=== PATIENT | male | born 1990 | race Caucasian/White ===

== ENCOUNTER 2023-04-01 16:29 | Outpatient (OUT) | payer BC, SELFPAY ==
[2023-04-01 16:56] LABS: Basophils Percent Auto 0.2 % (0.2-2.0); Eosinophils Absolute Auto 0.1 10^3/uL (0.0-0.7); Eosinophils Percent Auto 1.6 % (0.9-7.0); Hematocrit 42.7 % (42.0-54.0); Hemoglobin 15.7 g/dL (14.0-18.0); Immature Granulocytes Abs Auto 0.01 10^3/uL (0.00-0.03); Immature Granulocytes Pct Auto 0.2 % (0.0-0.5); Lymphocytes Absolute Auto 2.5 10^3/uL (1.2-3.8); Lymphocytes Percent Auto 40.3 % (20.5-60.0); Mean Corpuscular HGB Conc 36.8 g/dL (29.9-35.2); Mean Corpuscular Hemoglobin 32.6 pg (25.9-34.0); Mean Corpuscular Volume 88.8 fL (80.0-94.0); Mean Platelet Volume 9.8 fL (9.5-13.5); Monocytes Absolute Auto 0.5 10^3/uL (0.3-0.8); Monocytes Percent Auto 8.6 % (1.7-12.0); Neutrophils Absolute Auto 3.1 10^3/uL (1.4-6.5); Neutrophils Percent Auto 49.1 % (43.0-75.0); Platelet Count 298 10^3/uL (150-450); Red Blood Count 4.81 10^6/uL (4.70-6.10); Red Cell Distribution Width 12.2 % (11.0-15.0); White Blood Count 6.3 10^3/uL (4.0-11.0)
[2023-04-01 17:00] LABS: Ammonia 31 umol/L (11-32)
[2023-04-01 17:03] LABS: Estimated Average Glucose 94 mg/dL; Glycohemoglobin A1C 4.9 % (4.5-6.2)
[2023-04-01 17:23] LABS: Bilirubin Urine NEGATIVE (NEGATIVE); Blood Urine NEGATIVE (NEGATIVE); Clarity Urine CLEAR (CLEAR); Color Urine YELLOW (YELLOW); Glucose Urine UA NEGATIVE (NEGATIVE); Ketones Urine NEGATIVE (NEGATIVE); Leukocyte Esterase Urine NEGATIVE (NEGATIVE); Nitrite Urine NEGATIVE (NEGATIVE); Protein Urine NEGATIVE (NEG/TRACE); Urobilinogen Urine 0.2 EU/dL (0.2-1.0)
[2023-04-01 17:32] LABS: Free T4 1.13 ng/dL (0.76-1.46)
[2023-04-01 17:34] LABS: Bacteria Urine NONE SEEN #/HPF (NONE SEEN); Cast Seen? NONE SEEN #/LPF (NONE SEEN); Crystals Seen? None Seen #/HPF (None Seen); Mucus Urine TRACE (NONE SEEN); RBC Urine NONE SEEN #/HPF (0-2); Squamous Epithelial Cell Urine NONE SEEN #/LPF (NONE/RARE); Urine Culture Indicated NO; WBC Urine NONE SEEN #/HPF (NONE SEEN)
[2023-04-01 17:40] LABS: Alanine Aminotransferase 30 U/L (16-63); Albumin Globulin Ratio 1.6; Albumin Level 4.5 g/dL (3.4-5.0); Alkaline Phosphatase 63 U/L (46-116); Aspartate Amino Transferase 15 U/L (15-37); BUN Creatinine Ratio 18.2; Bilirubin Total 0.9 mg/dL (0.2-1.0); Calcium 8.8 mg/dL (8.5-10.1); Carbon Dioxide 24.6 mmol/L (21.0-32.0); Chloride 104 mmol/L (98-107); Estimated GFR (African America >60 (>=60); Estimated GFR (Non-African Ame >60 (>=60); Globulin 2.8 g/dL; Glucose 89 mg/dL (74-106); Potassium 3.6 mmol/L (3.5-5.1); Sodium 138 mmol/L (136-145); Thyroid Stimulating Hormone 2.217 uIU/mL (0.358-3.740); Total Protein 7.3 g/dL (6.4-8.2)
[2023-04-04 13:07] LABS: Insulin 4.5 uIU/mL (2.6-24.9)
== END 2023-04-01 16:30 | disposition home or self-care (01) ==
PROVIDERS: PCP Family Medicine; Visit Provider Family Medicine
DX: Z00.00 Encounter for general adult medical examination without abnormal findings (principal); R42 Dizziness and giddiness; H53.489 Generalized contraction of visual field, unspecified eye; R00.2 Palpitations
CPT/HCPCS: 36415; 80053; 81001; 82140; 83036; 83525; 84439; 84443; 84481; 85025; 87086

== ENCOUNTER 2023-04-04 12:19 | Outpatient (OUT) | payer BC, SELFPAY ==
--- NOTE | 2023-04-04 12:40 | CA_ITS ---
[facility] Test Date: 2023-04-25 Pat Name: JUANCARLOS JAMES Department: Room: - Gender: Male [employer]: : 1990 Requested By: AMANDA CANNON Order Number: [id number] Reading MD: ÁNGEL ROCHE Interpretive Statements Predominant rhythm is sinus with average rate of 85 bpm Tachycardia - max rate of 162 bpm - longest episode of 1hr 31min 54sec with rate of 129-159 bpm Bradycardia - min rate of 41 bpm - longest episdoe of 1hr with rate of 50-58 bpm Ventricular ectopy - 896 totol (<1%) - 890 PVC - 6 couplets Patient triggered events: 23 - associated with symptoms of chest pain, palpitations, lightheadedness - associated with rates of 123, 100, 108, 110, 104, 110, 104, 112, 145 and the remainder NSR Impression: Predominant rhythm is sinus with average rate of 85 bpm Fastest rate of 162 bpm and slowest rate of 41 bpm 890 PVC, 6 couplets No pauses or blocks Electronically Signed On 04-28-2023 7:23:01 EDT by ÁNGEL ROCHE
== END 2023-04-04 12:20 | disposition home or self-care (01) ==
LOC: CRPH3 12:20
PROVIDERS: PCP Family Medicine; Visit Provider Family Medicine
DX: R00.2 Palpitations (principal)
CPT/HCPCS: 93246

== ENCOUNTER 2023-04-28 22:50 | Emergency (ER) | payer OTHER, BC, SELFPAY ==
[2023-04-28 23:11] VITALS: BP 139/77; PULSE 94; RESP 16; TEMP 37.5; O2SAT 97; BMI 29.5
--- NOTE | 2023-04-28 23:33 | ED.WOUNDLAC1 ---
HPI - Wound/Laceration General Chief Complaint: Wound/Laceration Stated Complaint: UPPER INJURY Time Seen by Provider: 04/28/23 23:19 Source: patient Mode of arrival: walk-in Limitations: no limitations History of Present Illness HPI narrative: patient states he loss his balance at work and fell lacerating his wrist. States he instill a powder in the wound to help stop the bleeding and now presents to the ER. no numbness or weakness. Denies other injury. Not sure when he had his last tetanus shot Related Data Home Medications Medication Instructions Recorded Confirmed atomoxetine 60 mg capsule 60 mg PO QDAY 04/28/23 04/28/23 pantoprazole 40 mg tablet,delayed 40 mg PO Q12H 04/28/23 04/28/23 release Allergies Allergy/AdvReac Type Severity Reaction Status Date / Time cefadroxil [From Duricef] Allergy Unknown Verified 04/28/23 23:36 Review of Systems ROS Status of ROS 10 or more systems reviewed and unremarkable except as noted in history and below PFS PFS Social History Smoking status: Never smoker Exam Constitutional Vital Signs, click to edit/add: Last Vital Signs Temp 99.5 F 04/28/23 23:11 Pulse 94 H 04/28/23 23:11 Resp 16 04/28/23 23:11 BP 139/77 04/28/23 23:11 Pulse Ox 97 04/28/23 23:11 O2 Del Method Room Air 04/28/23 23:11 Common normals: no apparent distress, average body habitus, oriented x3, no limitations and healthy appearing Eye Common normals: EOMs intact bilaterally and conjunctivae normal Respiratory Common normals: normal respiratory effort, no retractions and no use of accessory muscles Extremity Other: triangular shape 2cm lac volar right wrist. black material that is adherent to the wound that is partially open. Minimal bleeding. No other FB. No swelling or erythema Neuro Common normals: oriented x3, moves all extremities, no focal motor deficits and no sensory deficits noted Psych Appearance: grossly normal Course Vital Signs Vital signs: Vital Signs Temperature 99.5 F 04/28/23 23:11 Pulse Rate 94 H 04/28/23 23:11 Respiratory Rate 16 04/28/23 23:11 Blood Pressure 139/77 04/28/23 23:11 Pulse Oximetry 97 04/28/23 23:11 Oxygen Delivery Method Room Air 04/28/23 23:11 Temperature 99.5 F 04/28/23 23:11 Pulse Rate 94 H 04/28/23 23:11 Respiratory Rate 16 04/28/23 23:11 Blood Pressure 139/77 04/28/23 23:11 Pulse Oximetry 97 04/28/23 23:11 Oxygen Delivery Method Room Air 04/28/23 23:11 MDM - Wound/Laceration MDM Narrative Medical decision making narrative: patient presents with acute lac of his right wrist that happen at work. He instill an unknown powder in the wound to help stop the bleeding and it work but now this powder substance is adherent to the wound. wound measure about 2cm. Patient informed I'm not able to close the wound with this material in the wound and will need to let it heal by secondary intention. Nursing to apply bacitracin and dress the wound. Patient given dose of Augmentin and will need to follow up with [facility] to monitor wound healing. tetanus shot provided Discharge Plan Discharge Chief Complaint: Wound/Laceration Clinical Impression: Laceration Patient Disposition: Home, Self-Care Prescriptions / Home Meds: No Action atomoxetine 60 mg capsule 60 mg PO QDAY pantoprazole 40 mg tablet,delayed release (DR/EC) 40 mg PO Q12H Instructions: Laceration (ED) Additional Instructions: follow up with [facility] tomorrow for recheck Stand Alone Forms: Portal Instructions Referrals: Martínez Kline MD [Primary Care Provider] - 1 week
[2023-04-29] MEDS: ADACEL DIPH,PERTUSS(ACELL),TET VAC/PF 0.5 ML ADULT SYRINGE IM (00:01)
== END 2023-04-29 00:37 | disposition home or self-care (01) ==
PROVIDERS: Emergency Provider Internal Medicine; PCP Family Medicine
DX: S61.511A Laceration without foreign body of right wrist, initial encounter (principal); Z23 Encounter for immunization; W01.10XA Fall on same level from slipping, tripping and stumbling with subsequent striking against unspecified object, initial encounter
CPT/HCPCS: 12001; 90471; 90715; 99284

== ENCOUNTER 2023-05-25 14:01 | Outpatient (OUT) | payer OTHER, BC, SELFPAY ==
--- NOTE | 2023-05-25 | XR_ITS ---
The [address] [address] Patient Name: JUANCARLOS JAMES MRN: [id number] date: 1990 Sex: M Assigned Patient Location: RAD Current Patient Location: [facility] Accession/Order Number: [id number] Exam Date: 05/25/2023 14:15 Report Date: 05/25/2023 14:33 At the request of: BEATRIZ MATOS Procedure: XR forearm RT 2V PROCEDURE: XR forearm RT 2V COMPARISON: None. HISTORY: Laceration FINDINGS: BONES:No fracture, acute abnormality, or significant arthropathy. SOFT TISSUES:Dorsal forearm soft tissue swelling. No radiopaque foreign body EFFUSION:None visible. OTHER: Negative. XR/XR forearm RT 2V IMPRESSION: Soft tissue swelling. No acute fracture Electronically authenticated by: CHESTER SMITH Date: 05/25/2023 14:33
== END 2023-05-25 14:02 | disposition home or self-care (01) ==
LOC: RAD 14:03
PROVIDERS: PCP Family Medicine; Visit Provider Nurse Practitioner Family
DX: S51.811A Laceration without foreign body of right forearm, initial encounter (principal); W19.XXXA Unspecified fall, initial encounter
CPT/HCPCS: 73090

== ENCOUNTER 2024-04-02 16:31 | Outpatient (OUT) | payer BC, SELFPAY ==
[2024-04-05 21:07] LABS: QuantiFERON-TB Gold Plus Negative (Negative)
== END 2024-04-02 16:32 | disposition home or self-care (01) ==
LOC: LAB 16:33
PROVIDERS: PCP Family Medicine; Visit Provider Nurse Practitioner
DX: L40.0 Psoriasis vulgaris (principal)
CPT/HCPCS: 36415; 86480

== ENCOUNTER 2024-04-27 10:08 | Emergency (ER) | payer OTHER, SELFPAY ==
[2024-04-27 10:12] VITALS: BP 156/99; PULSE 106; TEMP 36.7; O2SAT 97; BMI 31.7
--- OUTSIDE RECORDS SUMMARY | 2024-04-27 10:24 | XMS_ITS | CCD ---
Author Organization [facility] Care Team Providers Care Certified Family Mediator Name Role Phone DAVIS ., DR PATEL Admitting Unavailable HOY ., DR PATEL Attending Unavailable HOY ., DR PATEL Primary Care Unavailable HOY ., DR PATEL Consulting Unavailable GRANT, DR JOSEPH Admitting Unavailable BURNS, DR JOSEPH Attending Unavailable HOY ., DR PATEL Primary Care Unavailable BURNS, DR JOSEPH Consulting Unavailable HOY ., DR PATEL Admitting Unavailable HOY ., DR PATEL Attending Unavailable HOY ., DR PATEL Primary Care Unavailable HOY ., DR PATEL Consulting Unavailable MD Amanda Cannon Primary Care Provider [phone] MD Tani Rivero Attending Provider Amanda Cannon Primary Care Unavailable Tani Rivero Attending Unavailable Tani Rivero Admitting Unavailable VERONICA HOLLIS Referring Unavailable VERONICA HOLLIS Attending Unavailable BEATRIZ MATOS Referring Unavailable VERONICA HOLLIS Attending Unavailable GAURANG SNATANA Attending Unavailable Allergies Allergy Classification Reported Allergen(s) Allergy Type Date of Onset Reaction(s) Facility (1 source) Cefadroxil Drug Allergy 06-11-2015 [facility] Repository Problems Active Problems Problem Classification Problem Date Documented Da te Episodic/Chronic Acute bronchitis (1 source) Acute bronchitis, unspecified; Translations: [ACUTE BRONCHITIS UNSPECIFIED] Onset: 09-15-2022 Episodic Contraceptive and procreative management (1 source) Encounter for fertility testing; Translations: [Encounter for fertility testing] Onset: 03-21-2024 Episodic Unclassified (3 sources) CONTACT W/AND (SUSP) EXPOS COVID-19; Translations: [CONTACT W/AND (SUSP) EXPOS COVID-19] Onset: 09-15-2022 Past or Other Problems Problem Classification Problem Date Documented Da te Episodic/Chronic Other aftercare (4 sources) Other care home (current) drug therapy; Translations: [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 Fi [facility] Comment on above: USED QUICKCHECK FOR LIQUIFICATION Semen Round Cell Concentration Moderate [facility] Semen WBC Concentration <1.0 M/mL <0.9 [facility] Sperm % Non-Motile 36 % [facility] Sperm Motility Total 64.0 % >40 [facility] Qualitative semen viscosityO rdered By: RHONDA Rivero on 03-21-2024 Viscosity Ql (Lelia) Abnormal Abnormal Normal [facility] Semen Analysis, Fertilityon 03-21-2024 Debris/Round Cells Moderate Normal [facility] Comment on above: Order Comment: Metho d of Collection:: Masturbation Has the patient had a vasectomy?: N Type of Specimen Container:: Sterile Container Abstinence Period:: 5 DAYS Kept at body temperature?: Y Any Collection or Transport Problems?: NONE Performed By: #### S EMCOMP #### [facility] [address] [place] [address] [place] Immotile Sperm 36 % Normal [facility] Comment on above: Order Comment: Metho d of Collection:: Masturbation Has the patient had a vasectomy?: N Type of Specimen Container:: Sterile Container Abstinence Period:: 5 DAYS Kept at body temperature?: Y Any Collection or Transport Problems?: NONE Performed By: #### S EMCOMP #### [facility] [address] [place] [id number] [place] Non-Progression Sperm Motili 7 % Normal [facility] Comment on above: Order Comment: Metho d of Collection:: Masturbation Has the patient had a vasectomy?: N Type of Specimen Container:: Sterile Container Abstinence Period:: 5 DAYS Kept at body temperature?: Y Any Collection or Transport Problems?: NONE Performed By: #### S EMCOMP #### [address] Normal Sperm Morphology 14.0 % Normal >=4.0 [facility] Comment on above: Order Comment: Metho d of Collection:: Masturbation Has the patient had a vasectomy?: N Type of Specimen Container:: Sterile Container Abstinence Period:: 5 DAYS Kept at body temperature?: Y Any Collection or Transport Problems?: NONE Performed By: #### S EMCOMP #### [address] Rapid Progression Sperm Motili 57 % Normal [facility] Comment on above: Order Comment: Metho d of Collection:: Masturbation Has the patient had a vasectomy?: N Type of Specimen Container:: Sterile Container Abstinence Period:: 5 DAYS Kept at body temperature?: Y Any Collection or Transport Problems?: NONE Performed By: #### S EMCOMP #### [address] Semen Comment . Normal [facility] Comment on above: Order Comment: Metho d of Collection:: Masturbation Has the patient had a vasectomy?: N Type of Specimen Container:: Sterile Container Abstinence Period:: 5 DAYS Kept at body temperature?: Y Any Collection or Transport Problems?: NONE Result Comment: USED QUICKCHECK FOR LIQUIFICATION PERFORMED BY: [place] [address] PATHOLOGIST RUG UNDERLAY MACHINE OPERATOR IGLESIA VARGAS M.D. Performed By: #### S EMCOMP #### [address] Semen Liquefaction Abnormal Critically abnormal <=60 min [facility] Comment on above: Order Comment: Metho d of Collection:: Masturbation Has the patient had a vasectomy?: N Type of Specimen Container:: Sterile Container Abstinence Period:: 5 DAYS Kept at body temperature?: Y Any Collection or Transport Problems?: NONE Performed By: #### S EMCOMP #### [address] Semen Viscosity Abnormal Critically abnormal Normal [facility] Comment on above: Order Comment: Metho d of Collection:: Masturbation Has the patient had a vasectomy?: N Type of Specimen Container:: Sterile Container Abstinence Period:: 5 DAYS Kept at body temperature?: Y Any Collection or Transport Problems?: NONE Performed By: #### S EMCOMP #### [address] Semen Volume 2.5 mL Normal >=1.5 [facility] Comment on above: Order Comment: Metho d of Collection:: Masturbation Has the patient had a vasectomy?: N Type of Specimen Container:: Sterile Container Abstinence Period:: 5 DAYS Kept at body temperature?: Y Any Collection or Transport Problems?: NONE Performed By: #### S EMCOMP #### [place] [address] [place] Sperm Concentration 135.4 Normal >=15 [facility] Comment on above: Order Comment: Metho d of Collection:: Masturbation Has the patient had a vasectomy?: N Type of Specimen Container:: Sterile Container Abstinence Period:: 5 DAYS Kept at body temperature?: Y Any Collection or Transport Problems?: NONE Performed By: #### S EMCOMP #### [address] Total Motility ([place]MEM[place]IP MANA[place]) 64.0 % Normal >=40 ([place]MEM[place]) [facility] Comment on above: Order Comment: Metho d of Collection:: Masturbation Has the patient had a vasectomy?: N Type of Specimen Container:: Sterile Container Abstinence Period:: 5 DAYS Kept at body temperature?: Y Any Collection or Transport Problems?: NONE Performed By: #### S EMCOMP #### [place] [address] [place] WBC Concent, Semen <1.0 Normal <1.0 [facility] Comment on above: Order Comment: Metho d of Collection:: Masturbation Has the patient had a vasectomy?: N Type of Specimen Container:: Sterile Container Abstinence Period:: 5 DAYS Kept at body temperature?: Y Any Collection or Transport Problems?: NONE Performed By: #### S EMCOMP #### [place] [address] [place] Semen Analysis, FertilityOrd ered By: RHONDA Rivero on 03-21-2024 Semen Appearance Normal Normal Normal [facility] Comment on above: Order Comment: Metho d of Collection:: Masturbation Has the patient had a vasectomy?: N Type of Specimen Container:: Sterile Container Abstinence Period:: 5 DAYS Kept at body temperature?: Y Any Collection or Transport Problems?: NONE Performed By: #### S EMCOMP #### [address] Semen pH 8.0 Normal >=7.2 [facility] Comment on above: Order Comment: Metho d of Collection:: Masturbation Has the patient had a vasectomy?: N Type of Specimen Container:: Sterile Container Abstinence Period:: 5 DAYS Kept at body temperature?: Y Any Collection or Transport Problems?: NONE Performed By: #### S EMCOMP #### [facility] [address] [place] [address] Semen liquefaction time merle urementOrdered By: RHONDA Rivero on 03-21-2024 Liquefaction (Lelia) [Time] Abnormal Abnormal <=60 min [facility] Semen volumeOrdered By: DC Rivero on 03-21-2024 Specimen volume (Lelia) 2.5 mL >1.5 [facility] Sperm countOrdered By: JACOBO Rivero on 03-21-2024 Spermatozoa (Lelia) [#/Vol] 135.4 M/mL >15 [facility] Sperm morphologyOrdered By: RHONDA Rivero on 03-21-2024 Spermatozoa Nom (Lelia) 14.0 % >4.0 [facility] INSULINon 12-04-2022 Insulin 3.0 uIU/mL Normal 2.6-24.9 [facility] Comment on above: Performed By: #### I NSULIN #### [facility] [address] [address] [address] Penny Arroyo CBC AUTO DIFFon 12-03-2022 BASO # 0.0 103/ul Normal 0.0-0.1 [facility] Comment on above: Performed By: #### C BC #### [facility] [address] [place] [address] Dr. Penny Arroyo Basophils/100 WBC (Bld) 0.3 % Normal 0.2-2.0 [facility] Comment on above: Performed By: #### C BC #### [facility] [address] [place] [address] Dr. Penny Arroyo EO # 0.2 103/ul Normal 0.0-0.7 [facility] Comment on above: Performed By: #### C BC #### [facility] [address] [place] [address] Dr. Penny Arroyo Eosinophils/100 WBC (Bld) 2.3 % Normal 0.9-7.0 [facility] Comment on above: Performed By: #### C BC #### [facility] [address] [place] [address] Dr. Penny Arroyo Erythrocyte distribution width (RBC) [Ratio] 12.4 % Normal 11.0-15.0 [facility] Comment on above: Performed By: #### C BC #### [facility] [address] [place] [address] Dr. Penny Arroyo Hematocrit (Bld) [Volume fraction] 43.5 % Normal 42.0-54.0 [facility] Comment on above: Performed By: #### C BC #### [facility] [address] [place] [address] Dr. Penny Arroyo Hemoglobin (Bld) [Mass/Vol] 15.7 g/dL Normal 14.0-18.0 [facility] Comment on above: Performed By: #### C BC #### [facility] [address] [place] [address] Dr. Penny Arroyo IG # 0.02 10e3/ul Normal 0.00-0.03 [facility] Comment on above: Performed By: #### C BC #### [facility] [address] [place] [address] Dr. Penny Arroyo IG % 0.3 % Normal 0.0-0.5 [facility] Comment on above: Performed By: #### C BC #### [facility] [address] [address] [address] Penny Arroyo LYMPH # 2.9 103/ul Normal 1.2-3.8 [facility] Comment on above: Performed By: #### C BC #### [facility] [address] [address] [address] Penny Arroyo Lymphocytes/100 WBC (Bld) 41.8 % Normal 20.5-60.0 [facility] Comment on above: Performed By: #### C BC #### [facility] [address] [address] [address] Penny Arroyo MANUAL DIFF REQ NO Normal [facility] Comment on above: Performed By: #### C BC #### [facility] [address] [place] [address] Dr. Penny Arroyo MCH (RBC) [Entitic mass] 32.2 pg Normal 25.9-34.0 [facility] Comment on above: Performed By: #### C BC #### [facility] [address] [place] [address] Dr. Penny Arroyo MCHC (RBC) [Mass/Vol] 36.1 g/dL Critically high 29.9-35.2 [facility] Comment on above: Performed By: #### C BC #### [facility] [address] [place] [address] Dr. Penny Arroyo MCV (RBC) [Entitic vol] 89.3 fL Normal 80.0-94.0 [facility] Comment on above: Performed By: #### C BC #### [facility] [address] [place] [address] Dr. Penny Arroyo MONO # 0.6 103/ul Normal 0.3-0.8 [facility] Comment on above: Performed By: #### C BC #### [facility] [address] [place] [address] Dr. Penny Arroyo Monocytes/100 WBC (Bld) 9.1 % Normal 1.7-12.0 [facility] Comment on above: Performed By: #### C BC #### [facility] [address] [address] [address] Penny Arroyo NEUT # 3.2 103/ul Normal 1.4-6.5 [facility] Comment on above: Performed By: #### C BC #### [facility] [address] [place] [address] Dr. Penny Arroyo Neutrophils/100 WBC (Bld) 46.2 % Normal 43.0-75.0 [facility] Comment on above: Performed By: #### C BC #### [facility] [address] [place] [address] Dr. Penny Arroyo Platelet mean volume (Bld) [Entitic vol] 9.7 fL Normal 9.5-13.5 [facility] Comment on above: Performed By: #### C BC #### [facility] [address] [place] [address] Dr. Penny Arroyo PLT 257 103/ul Normal 150-450 [facility] Comment on above: Performed By: #### C BC #### [facility] [address] [place] [address] Dr. Penny Arroyo RBC 4.87 106/ul Normal 4.70-6.10 [facility] Comment on above: Performed By: #### C BC #### [facility] [address] [place] [address] Dr. Penny Arroyo WBC 7.0 103/ul Normal 4.0-11.0 [facility] Comment on above: Performed By: #### C BC #### [facility] [address] [place] [address] Dr. Penny Arroyo FREE THYROXINE INDEX T7on FTI 3.17 Normal 1.30-4.50 [facility] Comment on above: Performed By: #### T 7, CMP, TSH, LIPID #### [facility] [address] [place] [address] Dr. Penny Arroyo T3U 36.0 % Normal 33.0-40.0 [facility] Comment on above: Performed By: #### T 7, CMP, TSH, LIPID #### [facility] [address] [address] [address] Penny Arroyo T4 [Mass/Vol] 8.80 ug/dL Normal 4.50-12.10 [facility] Comment on above: Performed By: #### T 7, CMP, TSH, LIPID #### [facility] [address] [address] [address] Penny Arroyo GLYCOHEMOGLOBIN A1Con 2022 ADA RECOMMENDATION SEE BELOW Normal [facility] Comment on above: Result Comment: ADA RECOMMENDED LIMIT 4.0 - 6.0 ADA THERAPEUTIC TARGET < 7.0 ACTION SUGGESTED > 7.0 Performed By: #### A 1C #### [facility] [address] [address] [address] Penny Arroyo Glucose [Mass/Vol] 88 mg/dL Normal [facility] Comment on above: Performed By: #### A 1C #### [facility] [address] [place] [address] Dr. Penny Arroyo HbA1c (Bld) [Mass fraction] 4.7 % Normal 4.5-6.2 [facility] Comment on above: Performed By: #### A 1C #### [facility] [address] [place] [address] Dr. Penny Arroyo LIPID PROFILEon 12-03-2022 CHOL-HDL RATIO NORM SEE BELOW Normal [facility] Comment on above: Result Comment: 3.3 - 4.4 LOW RISK 4.4 - 7.1 AVERAGE RISK 7.1 - 11.0 MODERATE RISK >11.0 HIGH RISK Performed By: #### T 7, CMP, TSH, LIPID #### [facility] [address] [place] [address] Dr. Penny Arroyo Cholesterol [Mass/Vol] 148 mg/dL Normal <=200 [facility] Comment on above: Performed By: #### T 7, CMP, TSH, LIPID #### [facility] [address] [place] [address] Dr. Penny Arroyo Cholesterol in HDL [Mass/Vol] 37 mg/dL Critically low 40-60 [facility] Comment on above: Performed By: #### T 7, CMP, TSH, LIPID #### [facility] [address] [address] [address] Penny Arroyo Cholesterol in LDL [Mass/Vol] 67.6 mg/dL Normal [facility] Comment on above: Performed By: #### T 7, CMP, TSH, LIPID #### [facility] [address] [address] [address] Penny Arroyo Cholesterol.total/Chol esterol in HDL [Mass ratio] 4.0 {ratio} Normal [facility] Comment on above: Performed By: #### T 7, CMP, TSH, LIPID #### [facility] [address] [address] [address] Penny Arroyo HDL NORMAL > or = 60 mg/dl - LO W CARDIOVASCULAR RISK <40 mg/dl - HIGH CARDIOVASCULAR RISK Normal [facility] Comment on above: Performed By: #### T 7, CMP, TSH, LIPID #### [facility] [address] [address] [address] Penny Arroyo LDL CALC NORMAL SEE BELOW Normal [facility] Comment on above: Result Comment: <100 mg/dl OPTIMAL 100 - 129 mg/dl NEAR OR ABOVE OPTIMAL 130 - 159 mg/dl BORDERLINE HIGH 160 - 189 mg/dl HIGH >190 mg/dl VERY HIGH Performed By: #### T 7, CMP, TSH, LIPID #### [facility] [address] [address] [address] Penny Arroyo Triglyceride [Mass/Vol] 217 mg/dL Critically high <=150 [facility] Comment on above: Performed By: #### T 7, CMP, TSH, LIPID #### [facility] [address] [address] [address] Penny Arroyo VLDL CALC 43.4 mg/dL Normal [facility] Comment on above: Performed By: #### T 7, CMP, TSH, LIPID #### [facility] [address] [address] [address] Penny Arroyo PROF 14(COMP METB)on 023 Albumin [Mass/Vol] 4.2 g/dL Normal 3.4-5.0 [facility] Comment on above: Performed By: #### T 7, CMP, TSH, LIPID #### [facility] [address] [address] [address] Penny Arroyo Albumin/Globulin [Mass ratio] 1.4 {ratio} Normal [facility] Comment on above: Performed By: #### T 7, CMP, TSH, LIPID #### [facility] [address] [address] [address] Penny Arroyo ALP [Catalytic activity/Vol] 65 U/L Normal 46-116 [facility] Comment on above: Performed By: #### T 7, CMP, TSH, LIPID #### [facility] [address] [address] [address] Penny Arroyo ALT [Catalytic activity/Vol] 28 U/L Normal 16-63 [facility] Comment on above: Performed By: #### T 7, CMP, TSH, LIPID #### [facility] [address] [address] [address] Penny Arroyo Anion gap [Moles/Vol] 14.2 mmol/L Normal [facility] Comment on above: Performed By: #### T 7, CMP, TSH, LIPID #### [facility] [address] [address] [address] Penny Arroyo AST [Catalytic activity/Vol] 20 U/L Normal 15-37 [facility] Comment on above: Performed By: #### T 7, CMP, TSH, LIPID #### [facility] [address] [address] [address] Penny Arroyo Bilirubin [Mass/Vol] 0.7 mg/dL Normal 0.2-1.0 [facility] Comment on above: Performed By: #### T 7, CMP, TSH, LIPID #### [facility] [address] [address] [address] Penny Arroyo Calcium [Mass/Vol] 9.0 mg/dL Normal 8.5-10.1 [facility] Comment on above: Performed By: #### T 7, CMP, TSH, LIPID #### [facility] [address] [address] [address] Penny Arroyo Chloride [Moles/Vol] 103 mmol/L Normal 98-107 [facility] Comment on above: Performed By: #### T 7, CMP, TSH, LIPID #### [facility] [address] [place] [address] Dr. Penny Arroyo CO2 [Moles/Vol] 26.7 mmol/L Normal 21.0-32.0 [facility] Comment on above: Performed By: #### T 7, CMP, TSH, LIPID #### [facility] [address] [place] [address] Dr. Penny Arroyo Creatinine [Mass/Vol] 0.83 mg/dL Normal 0.70-1.30 [facility] Comment on above: Performed By: #### T 7, CMP, TSH, LIPID #### [facility] [address] [place] [address] Dr. Penny Arroyo EGFR-AF SAMMARINESE >60 Normal >=60 [facility] Comment on above: Performed By: #### T 7, CMP, TSH, LIPID #### [facility] [address] [place] [address] Dr. Penny Arroyo EGFR-NON AF SAMMARINESE >60 Normal >=60 [facility] Comment on above: Performed By: #### T 7, CMP, TSH, LIPID #### [facility] [address] [place] [address] Dr. Penny Arroyo Globulin (S) [Mass/Vol] 3.0 g/dL Normal [facility] Comment on above: Performed By: #### T 7, CMP, TSH, LIPID #### [facility] [address] [place] [address] Dr. Penny Arroyo Glucose [Mass/Vol] 89 mg/dL Normal 74-106 [facility] Comment on above: Performed By: #### T 7, CMP, TSH, LIPID #### [facility] [address] [place] [address] Dr. Penny Arroyo Potassium [Moles/Vol] 3.9 mmol/L Normal 3.5-5.1 [facility] Comment on above: Performed By: #### T 7, CMP, TSH, LIPID #### [facility] [address] [place], [place] [id number] Dr. Penny Arroyo Protein [Mass/Vol] 7.2 g/dL Normal 6.4-8.[address] [facility] Comment on above: Performed By: #### T 7, CMP, TSH, LIPID #### [facility] [address] [place] [address] Dr. Penny Arroyo Sodium [Moles/Vol] 140 mmol/L Normal 136-[address] [facility] Comment on above: Performed By: #### T 7, CMP, TSH, LIPID #### [facility] [address] [place] [address] Dr. Penny Arroyo Urea nitrogen [Mass/Vol] 15.0 mg/dL Normal 7.0-18.0 [facility] Comment on above: Performed By: #### T 7, CMP, TSH, LIPID #### [facility] [address] [place] [address] Dr. Penny Arroyo Urea nitrogen/Creatinine [Mass ratio] 18.1 mg/mg Normal [facility] Comment on above: Performed By: #### T 7, CMP, TSH, LIPID #### [facility] [address] [place] [address] Dr. Penny Arroyo TSHon 12-03-2022 TSH 2.567 uIU/mL Normal 0.358-3.740 [facility] Comment on above: Performed By: #### T 7, CMP, TSH, LIPID #### [facility] [address] [place] [address] Dr. Penny Arroyo Covid-19 PCR (CVDTB)on 08-20 SARS-CoV-2 (COVID-19) RNA HALI+probe Ql (Unsp spec) Not detected Normal NOT DETECTED [facility] Comment on above: Result Comment: This test is not yet approved or cleared by the [place] FDA. When there are no FDA-approved or cleared tests available, and other criteria are met, FDA can make tests available under an emergency access mechanism called an Emergency Use Authorization (EUA). The EUA for this test is supported by the [place] of Health and Human Service's (HHS's) declaration that circumstances exist to justify the emergency use of in vitro diagnostics for the detection and/or diagnosis of the virus that causes COVID-19. This EUA will remain in effect (meaning this test can be used) for the duration of the COVID-19 declaration justifying emergency of IVDs, unless it is terminated or revoked by FDA (after which the test may no longer be used). When diagnostic testing is negative, the possibility of a false negative should be considered in the context of a patient's recent exposures and the presence of clinical signs and symptoms consistent with SARS-CoV-2. Performed By: #### C VDTBH #### [facility] [address] [place] [address] Dr. Penny Arroyo INFLUENZA A AND B AGon 09-08 INFLUENZA A AG Negative Normal NEGATIVE SEE COMMENT [facility] Comment on above: Performed By: #### I NFLUAB #### [facility] [address] [place], [place] [address] Dr. Penny Arroyo INFLUENZA B AG Negative Normal NEGATIVE SEE COMMENT [facility] Comment on above: Performed By: #### I NFLUAB #### [facility] [address] [place] [address] Dr. Penny Arroyo INTERNAL CONTROLS Within Normal Limits Normal Wi thin Normal Limits [facility] Comment on above: Performed By: #### I NFLUAB #### [facility] [address] [place] [address] Dr. Penny Arroyo QUANTIFERON TB GOLD PLUSon 0 02-19-2022 QuantiFERON Criteria Comment Normal [facility] Comment on above: Result Comment: The QuantiFERON-TB Gold Plus result is determined by subtracting the Nil value from either TB antigen (Ag) tube. The mitogen tube serves as a control for the test. Performed By: #### Q NTTB #### [facility] [address] [place] [address] Dr. Penny Arroyo QuantiFERON Incubation Incubation performed. [facility] Comment on above: Performed By: #### Q NTTB #### [facility] [address] [place] [address] Dr. Penny Arroyo QuantiFERON Mitogen Value >10.00 Normal [facility] Comment on above: Performed By: #### Q NTTB #### [facility] [address] [address] [address] Penny Arroyo QuantiFERON Nil Value 0.06 IU/mL Normal [facility] Comment on above: Performed By: #### Q NTTB #### [facility] [address] [address] [address] Penny Arroyo QuantiFERON TB1 Ag Value 0.05 IU/mL Normal [facility] Comment on above: Performed By: #### Q NTTB #### [facility] [address] [address] [address] Penny Arroyo QuantiFERON TB2 Ag Value 0.05 IU/mL Normal [facility] Comment on above: Performed By: #### Q NTTB #### [facility] [address] [address] [address] Penny Arroyo QuantiFERON-TB Gold Plus Negative Normal Negative [facility] Comment on above: Result Comment: Chem iluminescence immunoassay methodology Performed By: #### Q NTTB #### [facility] [address] [address] [address] Penny Arroyo Coding Summary.on 05-10-2019 Coding Summary. CODING DATE: 05/10/2019 [facility] STATUS: Home (Routine DC) PAYOR: [facility] DESCRIPTION 5521 Level 1 Imaging without Contrast ADMIT DX: REASON FOR VISIT DX: R07.81 Pleurodynia FINAL DX: PRINCIPAL: R07.81 Pleurodynia SECONDARY: PYMT PROC APC STAT DESCRIPTION DOCTOR NAME DATE NOTE: The code number assigned matches the documented diagnosis and / or procedure in the patient's chart. However, the narrative phrase printed from the coding software may appear abbreviated, or result in slightly different terminology. Coded By: Elke Roman CphT Date Saved: 05/10/2019 11:17 am Normal [facility] XR Ribs 2 Views Lefton 05-07 XR Ribs 2 Views Left Exam Date/Time: 05/07/2019 12:24 EDT Reason for Exam: Injury;Injury Report IMPRESSION: MINIMALLY DISPLACED FRACTURE OF POSTEROLATERAL LEFT RIB 10. EXAMINATION: X-ray ribs left 2 view HISTORY: Left rib pain after injury. TECHNIQUE: Frontal and oblique views of the left ribs FINDINGS: Minimally displaced fracture of posterolateral left rib 10. Remaining ribs appear intact. Visualized lungs are clear. No pneumothorax. FINAL REPORT Dictated: 05/07/2019 3:15 pm Juancarlos Baker DO Signed (Electronic Signature): 05/07/2019 3:15 pm Signed by: Juancarlos Baker DO Transcribed by: WILLIAM Technologist: HARISH Brunner [facility] Encounters Encounter Date Encounter Type Care Provider Facility Start: 04-02-2024 End: 04-02-2024 ambulatory GAURANG SANTANA Not Available Start: 03-21-2024 End: 03-21-2024 Patient encounter procedure MD Amanda Cannon Work Phone: [facility] [place] Work Phone: Start: 03-21-2024 End: 03-21-2024 ambulatory MD Amanda Cannon Work Phone: [facility] Work Phone: Start: 02-09-2024 End: 02-09-2024 ambulatory VERONICA HOLLIS Not Available Start: 12-29-2023 End: 12-29-2023 ambulatory VERONICA HOLLIS Not Available Start: 12-11-2022 Encounter for genera l adult medical examination without abnormal findings DR AMANDA CANNON . [facility] Start: 12-03-2022 End: 12-04-[address] AMANDA CANNON . Facility[facility] Start: 12-03-2022 End: 12-04-2022 Encounter for general adult medical examination without abnormal findings DR AMANDA CANNON . Facility:[facility] Start: 09-08-2022 End: 09-08-[address] AMANDA CANNON . Facility:[facility] Start: 02-16-2022 End: 02-17-[address] OPAL BURNS Facility:[facility] Payers Date Payer Category Payer Self-pay [id number] 2023 Unknown [id number] 1989 Unknown [id number] 2.16.84 [id number] 1989 Unknown [id number] 2.16.84 [id number] 1989 Unknown [id number] 2.16.84 [id number] 1989 Unknown [id number] 2.16.84 [id number] 1989 Unknown [id number] 2.16.84 [id number] 1989 Unknown [id number] 2.16.84 0.1.809969.3.579.2.9 1989 Unknown [id number] 2.16.84 0.1.380739.3.579.2.9 1989 Unknown [id number] 2.16.84 0.1.394371.3.579.2.1259 1989 Unknown [id number] 2.16.84 [id number] 1989 Unknown [id number] 2.16.84 0.1.056680.3.579.2.9 1989 Unknown [id number] 2.16.84 [id number] 1959 Unknown [id number] 1959 Unknown [id number] Unknown [id number] 2.16.8 [id number] Social History Date Type Detail [facility] Work Phone: Start: 1990 Sex Assigned At Male F [facility] Clinical Note 03-21-2024 Note Date & Type Note Facility 03-21-2024 Note [facility] Sperm Rapid Progressive March 21, 2024 7:30am 57 % Clinical Note 03-21-2024 Note Date & Type Note Facility 03-21-2024 Note [facility] Sperm Non-Progressive March 21, 2024 7:30am 7 % Evaluation note Note Date & Type Note Facility Evaluation note No assessment information availa [facility] Work Phone: Summary Purpose Family History No Family History Records FoundNo Family History Records FoundNo Family History Records FoundNo Family History Records Found Advance Directives No Advanced Directives Records Found Advance Directive Response Recorded Date/ Time Advance Directives No March 21 8:26am Chief Complaint and Reason for Visit Chief Complaint Z31.42 Additional Source Comments (unrecognized sect ion and content) No Status Records FoundNo Status Records FoundNo Status Records FoundNo Status Records Found INFORMATION SOURCE (unrecogn ized section and content) DATE CREATED AUTHOR 05/11/2019 [facility] DATE CREATED AUTHOR AUTHOR'S ORGANIZ ATION 12/12/2022 [facility] DATE CREATED AUTHOR AUTHOR'S ORGANIZ ATION 04/06/2024 [facility] DATE CREATED AUTHOR AUTHOR'S ORGANIZ ATION 04/06/2024 [facility] EPIC Care Teams (unrecognized sec tion and content) Team Status: Active Member Role Status Dates Amanda Cannon MD Primary Care Provider Active Team Status: Inactive Member Role Status Dates Amanda Cannon MD Primary Care Provider Active Start: March 21, 2024 End: March 21, 2024 Tani Rivero MD Attending Provider Active St art: March 21, 2024 End: March 21, 2024 Goals (unrecognized section and content) Goals may be documented in a n alternate section FOR RECORDS PERTAINING TO PATIENTS WHO ARE OR HAVE BEEN ENROLLED IN A CHEMICAL DEPENDENCY/SUBSTANCEABUSE PROGRAM, SOME INFORMATION MAY BE OMITTED. This clinical summary was aggregated from multiple sources. Caution should be exercised in using it in the provision of clinical care. This summary normalizes information from multiple sources, and as a consequence, information in this document may materially change the coding, format and clinical context of patient data. In addition, data may be omitted in some cases. CLINICAL DECISIONS SHOULD BE BASED ON THE PRIMARY CLINICAL RECORDS. [employer] provides no warranty or guarantee of the accuracy or completeness of information in this document.
--- NOTE | 2024-04-27 10:36 | XR_ITS ---
The [address] [address] Patient Name: JUANCARLOS JAMES MRN: [id number] date: 1990 Sex: M Assigned Patient Location: ER Current Patient Location: ER Accession/Order Number: [id number] Exam Date: 04/27/2024 10:45 Report Date: 04/27/2024 11:08 At the request of: PINO BERG Procedure: XR hand RT min 3V PROCEDURE: XR hand RT min 3V HISTORY: Attention middle finger, laceration, missing nail COMPARISON: None. FINDINGS: BONES:No fracture, acute abnormality, or significant arthropathy. SOFT TISSUES:Mild soft tissue swelling of third digit. Several tiny foreign bodies adjacent the fingernail of the fourth digit. EFFUSION:None visible. OTHER: Negative. XR/XR hand RT min 3V IMPRESSION: 1. Mild soft tissue swelling of the third digit. No bone involvement. Electronically authenticated by: RUTHY OROSCO Date: 04/27/2024 11:08
--- NOTE | 2024-04-27 10:52 | ED.WOUNDLAC1 ---
HPI - Wound/Laceration General Chief Complaint: Wound/Laceration Stated Complaint: LACERATION [facility] Time Seen by Provider: 04/27/24 10:29 Source: patient Mode of arrival: walk-in History of Present Illness HPI narrative: 33-year-old male presents for a wound to his right middle finger. This occurred at work just before coming into the emergency department. 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 His nail and some skin came off. He has no difficulty bending the tip of his finger and no other injury was sustained. Related Data Home Medications ?Medication ?Instructions ?Recorded ?Confirmed atomoxetine 60 mg capsule 60 mg PO QDAY 04/28/23 04/28/23 pantoprazole 40 mg tablet,delayed 40 mg PO Q12H 04/28/23 04/28/23 release Previous Rx's ?Medication ?Instructions ?Recorded acetaminophen 300 mg-codeine 30 mg 1 tab PO Q6H PRN pain 5 days #20 04/27/24 tablet tabs sulfamethoxazole 800 1 tab PO BID 10 days #20 tabs 04/27/24 mg-trimethoprim 160 mg tablet (Bactrim DS) Allergies Allergy/AdvReac Type Severity Reaction Status Date / Time cefadroxil [From Duricef] Allergy Unknown Verified 04/28/23 23:36 Review of Systems ROS Narrative A ten point review of systems is negative except as noted above. PFSH PFSH Social History Smoking status: Never smoker Exam Narrative Exam Narrative: Nurses note and vital signs reviewed and patient is not hypoxic. General: The patient appears well and in no apparent distress. Patient is resting comfortably on cart. Skin: Warm, dry, no pallor noted. There is no rash noted. Head: Normocephalic, atraumatic Eye: Normal conjunctiva, no drainage Ears, Nose, Mouth, and Throat: oral mucosa is moist. Nares patent. Cardiovascular: Regular Rate and Rhythm Respiratory: Patient is in no distress, no accessory muscle use, lungs are clear to auscultation, no wheezing, rales or rhonchi Back: non-tender GI: Soft and nontender Musculoskeletal: The right hand is examined. The right third fingernail is missing and there is an area of missing skin proximal to that that extends over the DIP. PIP and DIP have full range of motion. No other wound is found. Neurological: Awake and alert Psychiatric: Cooperative Constitutional Vital Signs, click to edit/add: Last Vital Signs Temp 98.0 F 04/27/24 10:12 Pulse 106 H 04/27/24 10:12 Resp 16 04/27/24 10:12 BP 156/99 H 04/27/24 10:12 Pulse Ox 97 04/27/24 10:12 O2 Del Method Room Air 04/27/24 10:12 Course Vital Signs Vital signs: Vital Signs Temperature 98.0 F 04/27/24 10:12 Pulse Rate 106 H 04/27/24 10:12 Respiratory Rate 16 04/27/24 10:12 Blood Pressure 156/99 H 04/27/24 10:12 Pulse Oximetry 97 04/27/24 10:12 Oxygen Delivery Method Room Air 04/27/24 10:12 Temperature 98.0 F 04/27/24 10:12 Pulse Rate 106 H 04/27/24 10:12 Respiratory Rate 16 04/27/24 10:12 Blood Pressure 156/99 H 04/27/24 10:12 Pulse Oximetry 97 04/27/24 10:12 Oxygen Delivery Method Room Air 04/27/24 10:12 MDM - Wound/Laceration MDM Narrative Medical decision making narrative: X-rays negative. Sutures are not indicated, there is skin avulsion. The wound was cleansed and dressed. Tetanus is already up-to-date, he had 1 a year ago. He is placed on Tylenol 3 and Bactrim. Appointment made for him to see orthopedics in 3 days, 11:30 AM on April 30. Treatment diagnosis and follow-up were discussed with the patient. He will return here in 2 days for wound check and dressing change. Differential Diagnosis Differential diagnosis: Likely laceration and avulsion of skin Discharge Plan Discharge Stand Alone Forms: Portal Instructions Chief Complaint: Wound/Laceration Clinical Impression: Avulsion of skin Patient Disposition: Home, Self-Care Prescriptions / Home Meds: New acetaminophen-codeine 300-30 mg tablet 1 tab PO Q6H PRN (Reason: pain) 5 Days Qty: 20 0RF sulfamethoxazole-trimethoprim [Bactrim DS] 800-160 mg tablet 1 tab PO BID 10 Days Qty: 20 0RF No Action atomoxetine 60 mg capsule 60 mg PO QDAY pantoprazole 40 mg tablet,delayed release (DR/EC) 40 mg PO Q12H Print Language: Latvian Instructions: Laceration Without Closure (ED) Additional Instructions: See Dr. Caballero at your appointment at 11:30 AM on April 30. Come to ER on April 29 for wound check and dressing change. Referrals: Martínez Kline MD [Primary Care Provider] - 1 week Arturo Caballero MD [Physician] - None
[2024-04-27] MEDS: ACETAMINOPHEN 300 MG/ 30 MG CODEINE TABLET 1 TAB PO (11:47)
== END 2024-04-27 11:59 | disposition home or self-care (01) ==
PROVIDERS: Emergency Provider Emergency Medicine; PCP Family Medicine
DX: S61.202A Unspecified open wound of right middle finger without damage to nail, initial encounter (principal); X58.XXXA Exposure to other specified factors, initial encounter
CPT/HCPCS: 73130; 99283

== ENCOUNTER 2024-04-29 08:59 | Emergency (ER) | payer BC, OTHER, SELFPAY ==
[2024-04-29 09:04] VITALS: BP 163/97; PULSE 71; TEMP 36.6; O2SAT 99; BMI 32.1
--- OUTSIDE RECORDS SUMMARY | 2024-04-29 09:05 | XMS_ITS | CCD ---
Author Organization [facility] Care Team Providers Care Power Distribution Engineer Name Role Phone DAVIS ., DR PATEL [...] Unavailable MD Amanda Cannon Primary Care Provider [phone] MD Tani Rivero Attending Provider [phone] Amanda Cannon Primary Care Unavailable Tani Rivero Attending Unavailable Tani Rivero Admitting Unavailable VERONICA HOLLIS Referring Unavailable VERONICA HOLLIS Attending Unavailable BEATRIZ MATOS Referring Unavailable VERONICA HOLLIS Attending Unavailable GAURANG SANTANA Attending Unavailable Allergies Allergy Classification Reported Allergen(s) Allergy Type Date of Onset Reaction(s) Facility (1 source) Cefadroxil Drug Allergy 06-11-2015 [facility] Repository Problems Active Problems Problem Classification Problem [...] te Episodic/Chronic Other aftercare (4 sources) Other photographer news (current) drug therapy; Translations: [OTH HALF-WAY CURRENT DRUG THERAPY] Onset: 02-16-2022 Episodic Unclassified (1 source) CONTACT W/AND (SUSP) EXPOS COVID-19; Translations: [CONTACT W/AND (SUSP) EXPOS COVID-19] Onset: 09-08-2022 Results Test Name Value Interpretation Reference Range Facility No Panel InformationOrdered By: RHONDA Rivero on 03-21-2024 Semen Analysis Comment . [facility] Comment on above: USED QUICKCHECK FOR LIQUIFICATION Semen Round Cell Concentration Moderate [facility] Semen WBC Concentration <1.0 M/mL <0.9 [facility] Sperm % Non-Motile 36 % [facility] Sperm Motility Total 64.0 % >40 [facility] Qualitative semen viscosityO rdered By: RHONDA Rivero on 03-21-2024 Viscosity Ql (Lelia) Abnormal Abnormal Normal [facility] Semen Analysis, Fertilityon 03-21-2024 Debris/Round Cells Moderate Normal [facility] Comment on above: Order Comment: Metho d of Collection:: Masturbation Has the patient had a vasectomy?: N Type of Specimen Container:: Sterile Container Abstinence Period:: 5 DAYS Kept at body temperature?: Y Any Collection or Transport Problems?: NONE Performed By: #### S EMCOMP #### [facility] [address] [place] [address] [place] Immotile Sperm 36 % Normal [facility] Comment on above: Order Comment: Metho d of Collection:: Masturbation Has the patient had a vasectomy?: N Type of Specimen Container:: Sterile Container Abstinence Period:: 5 DAYS Kept at body temperature?: Y Any Collection or Transport Problems?: NONE Performed By: #### S EMCOMP #### [facility] [address] [place] [id number] [place] Non-Progression Sperm Motili 7 % Normal [facility] Comment on above: Order Comment: Metho d of Collection:: Masturbation Has the patient had a vasectomy?: N Type of Specimen Container:: Sterile Container Abstinence Period:: 5 DAYS Kept at body temperature?: Y Any Collection or Transport Problems?: NONE Performed By: #### S EMCOMP #### [address] Normal Sperm Morphology 14.0 % Normal >=4.0 [facility] Comment on above: Order Comment: Metho d of Collection:: Masturbation Has the patient had a vasectomy?: N Type of Specimen Container:: Sterile Container Abstinence Period:: 5 DAYS Kept at body temperature?: Y Any Collection or Transport Problems?: NONE Performed By: #### S EMCOMP #### [address] Rapid Progression Sperm Motili 57 % Normal [facility] Comment on above: Order Comment: Metho d of Collection:: Masturbation Has the patient had a vasectomy?: N Type of Specimen Container:: Sterile Container Abstinence Period:: 5 DAYS Kept at body temperature?: Y Any Collection or Transport Problems?: NONE Performed By: #### S EMCOMP #### [address] Semen Comment . Normal [facility] Comment on above: Order Comment: Metho d of Collection:: Masturbation Has the patient had a vasectomy?: N Type of Specimen Container:: Sterile Container Abstinence Period:: 5 DAYS Kept at body temperature?: Y Any Collection or Transport Problems?: NONE Result Comment: USED QUICKCHECK FOR LIQUIFICATION PERFORMED BY: [place] [address] PATHOLOGIST SUBWAY OPERATOR IGLESIA VARGAS M.D. Performed By: #### S EMCOMP #### [address] Semen Liquefaction Abnormal Critically abnormal <=60 min [facility] Comment on above: Order Comment: Metho d of Collection:: Masturbation Has the patient had a vasectomy?: N Type of Specimen Container:: Sterile Container Abstinence Period:: 5 DAYS Kept at body temperature?: Y Any Collection or Transport Problems?: NONE Performed By: #### S EMCOMP #### [address] Semen Viscosity Abnormal Critically abnormal Normal [facility] Comment on above: Order Comment: Metho d of Collection:: Masturbation Has the patient had a vasectomy?: N Type of Specimen Container:: Sterile Container Abstinence Period:: 5 DAYS Kept at body temperature?: Y Any Collection or Transport Problems?: NONE Performed By: #### S EMCOMP #### [address] Semen Volume 2.5 mL Normal >=1.5 [facility] Comment on above: Order Comment: Metho d of Collection:: Masturbation Has the patient had a vasectomy?: N Type of Specimen Container:: Sterile Container Abstinence Period:: 5 DAYS Kept at body temperature?: Y Any Collection or Transport Problems?: NONE Performed By: #### S EMCOMP #### [place] [address] [place] Sperm Concentration 135.4 Normal >=15 [facility] Comment on above: Order Comment: Metho d of Collection:: Masturbation Has the patient had a vasectomy?: N Type of Specimen Container:: Sterile Container Abstinence Period:: 5 DAYS Kept at body temperature?: Y Any Collection or Transport Problems?: NONE Performed By: #### S EMCOMP #### [address] Total Motility ([employer]) 64.0 % Normal >=40 ([employer]) [facility] Comment on above: Order Comment: Metho d of Collection:: Masturbation Has the patient had a vasectomy?: N Type of Specimen Container:: Sterile Container Abstinence Period:: 5 DAYS Kept at body temperature?: Y Any Collection or Transport Problems?: NONE Performed By: #### S EMCOMP #### [place] [address] [place] WBC Concent, Semen <1.0 Normal <1.0 [facility] Comment on above: Order Comment: Metho d of Collection:: Masturbation Has the patient had a vasectomy?: N Type of Specimen Container:: Sterile Container Abstinence Period:: 5 DAYS Kept at body temperature?: Y Any Collection or Transport Problems?: NONE Performed By: #### S EMCOMP #### [place] [address] [place] Semen Analysis, FertilityOrd ered By: RHONDA Rivero on 03-21-2024 Semen Appearance Normal Normal Normal [facility] Comment on above: Order Comment: Metho d of Collection:: Masturbation Has the patient had a vasectomy?: N Type of Specimen Container:: Sterile Container Abstinence Period:: 5 DAYS Kept at body temperature?: Y Any Collection or Transport Problems?: NONE Performed By: #### S EMCOMP #### [address] Semen pH 8.0 Normal >=7.2 [facility] Comment on above: Order Comment: Metho d of Collection:: Masturbation Has the patient had a vasectomy?: N Type of Specimen Container:: Sterile Container Abstinence Period:: 5 DAYS Kept at body temperature?: Y Any Collection or Transport Problems?: NONE Performed By: #### S EMCOMP #### [facility] [address] [place] [address] Semen liquefaction time merle urementOrdered By: RHONDA Rivero on 03-21-2024 Liquefaction (Lelia) [Time] Abnormal Abnormal <=60 min [facility] Semen volumeOrdered By: DC Rivero on 03-21-2024 Specimen volume (Lelia) 2.5 mL >1.5 [facility] Sperm countOrdered By: JACOBO Rivero on 03-21-2024 Spermatozoa (Lelia) [#/Vol] 135.4 M/mL >15 [facility] Sperm morphologyOrdered By: RHONDA Rivero on 03-21-2024 Spermatozoa Nom (Lelia) 14.0 % >4.0 [facility] INSULINon 12-04-2022 Insulin 3.0 uIU/mL Normal 2.6-24.9 [facility] Comment on above: Performed By: #### I NSULIN #### [facility] [address] [address] [address] Penny Arroyo CBC AUTO DIFFon 12-03-2022 BASO # 0.0 103/ul Normal 0.0-0.1 [facility] Comment on above: Performed By: #### C BC #### [facility] [address] [place] [address] Dr. Penny Arroyo Basophils/100 WBC (Bld) 0.3 % Normal 0.2-2.0 [facility] Comment on above: Performed By: #### C BC #### [facility] [address] [place] [address] Dr. Penny Arroyo EO # 0.2 103/ul Normal 0.0-0.7 [facility] Comment on above: Performed By: #### C BC #### [facility] [address] [place] [address] Dr. Penny Arroyo Eosinophils/100 WBC (Bld) 2.3 % Normal 0.9-7.0 [facility] Comment on above: Performed By: #### C BC #### [facility] [address] [place] [address] Dr. Penny Arroyo Erythrocyte distribution width (RBC) [Ratio] 12.4 % Normal 11.0-15.0 [facility] Comment on above: Performed By: #### C BC #### [facility] [address] [place] [address] Dr. Penny Arroyo Hematocrit (Bld) [Volume fraction] 43.5 % Normal 42.0-54.0 [facility] Comment on above: Performed By: #### C BC #### [facility] [address] [place] [address] Dr. Penny Arroyo Hemoglobin (Bld) [Mass/Vol] 15.7 g/dL Normal 14.0-18.0 [facility] Comment on above: Performed By: #### C BC #### [facility] [address] [place] [address] Dr. Penny Arroyo IG # 0.02 10e3/ul Normal 0.00-0.03 [facility] Comment on above: Performed By: #### C BC #### [facility] [address] [place] [address] Dr. Penny Arroyo IG % 0.3 % Normal 0.0-0.5 [facility] Comment on above: Performed By: #### C BC #### [facility] [address] [address] [address] Penny Arroyo LYMPH # 2.9 103/ul Normal 1.2-3.8 [facility] Comment on above: Performed By: #### C BC #### [facility] [address] [address] [address] Penny Arroyo Lymphocytes/100 WBC (Bld) 41.8 % Normal 20.5-60.0 [facility] Comment on above: Performed By: #### C BC #### [facility] [address] [address] [address] Penny Arroyo MANUAL DIFF REQ NO Normal [facility] Comment on above: Performed By: #### C BC #### [facility] [address] [place] [address] Dr. Penny Arroyo MCH (RBC) [Entitic mass] 32.2 pg Normal 25.9-34.0 [facility] Comment on above: Performed By: #### C BC #### [facility] [address] [place] [address] Dr. Penny Arroyo MCHC (RBC) [Mass/Vol] 36.1 g/dL Critically high 29.9-35.2 [facility] Comment on above: Performed By: #### C BC #### [facility] [address] [place] [address] Dr. Penny Arroyo MCV (RBC) [Entitic vol] 89.3 fL Normal 80.0-94.0 [facility] Comment on above: Performed By: #### C BC #### [facility] [address] [place] [address] Dr. Penny Arroyo MONO # 0.6 103/ul Normal 0.3-0.8 [facility] Comment on above: Performed By: #### C BC #### [facility] [address] [place] [address] Dr. Penny Arroyo Monocytes/100 WBC (Bld) 9.1 % Normal 1.7-12.0 [facility] Comment on above: Performed By: #### C BC #### [facility] [address] [address] [address] Penny Arroyo NEUT # 3.2 103/ul Normal 1.4-6.5 [facility] Comment on above: Performed By: #### C BC #### [facility] [address] [place] [address] Dr. Penny Arroyo Neutrophils/100 WBC (Bld) 46.2 % Normal 43.0-75.0 [facility] Comment on above: Performed By: #### C BC #### [facility] [address] [place] [address] Dr. Penny Arroyo Platelet mean volume (Bld) [Entitic vol] 9.7 fL Normal 9.5-13.5 [facility] Comment on above: Performed By: #### C BC #### [facility] [address] [place] [address] Dr. Penny Arroyo PLT 257 103/ul Normal 150-450 [facility] Comment on above: Performed By: #### C BC #### [facility] [address] [place] [address] Dr. Penny Arroyo RBC 4.87 106/ul Normal 4.70-6.10 [facility] Comment on above: Performed By: #### C BC #### [facility] [address] [place] [address] Dr. Penny Arroyo WBC 7.0 103/ul Normal 4.0-11.0 [facility] Comment on above: Performed By: #### C BC #### [facility] [address] [place] [address] Dr. Penny Arroyo FREE THYROXINE INDEX T7on FTI 3.17 Normal 1.30-4.50 [facility] Comment on above: Performed By: #### T 7, CMP, TSH, LIPID #### [facility] [address] [place] [address] Dr. Penny Arroyo T3U 36.0 % Normal 33.0-40.0 [facility] Comment on above: Performed By: #### T 7, CMP, TSH, LIPID #### [facility] [address] [address] [address] Penny Arroyo T4 [Mass/Vol] 8.80 ug/dL Normal 4.50-12.10 [facility] Comment on above: Performed By: #### T 7, CMP, TSH, LIPID #### [facility] [address] [address] [address] Penny Arroyo GLYCOHEMOGLOBIN A1Con 2022 ADA RECOMMENDATION SEE BELOW Normal [facility] Comment on above: Result Comment: ADA RECOMMENDED LIMIT 4.0 - 6.0 ADA THERAPEUTIC TARGET < 7.0 ACTION SUGGESTED > 7.0 Performed By: #### A 1C #### [facility] [address] [address] [address] Penny Arroyo Glucose [Mass/Vol] 88 mg/dL Normal [facility] Comment on above: Performed By: #### A 1C #### [facility] [address] [place] [address] Dr. Penny Arroyo HbA1c (Bld) [Mass fraction] 4.7 % Normal 4.5-6.2 [facility] Comment on above: Performed By: #### A 1C #### [facility] [address] [place] [address] Dr. Penny Arroyo LIPID PROFILEon 12-03-2022 CHOL-HDL RATIO NORM SEE BELOW Normal [facility] Comment on above: Result Comment: 3.3 - 4.4 LOW RISK 4.4 - 7.1 AVERAGE RISK 7.1 - 11.0 MODERATE RISK >11.0 HIGH RISK Performed By: #### T 7, CMP, TSH, LIPID #### [facility] [address] [place] [address] Dr. Penny Arroyo Cholesterol [Mass/Vol] 148 mg/dL Normal <=200 [facility] Comment on above: Performed By: #### T 7, CMP, TSH, LIPID #### [facility] [address] [place] [address] Dr. Penny Arroyo Cholesterol in HDL [Mass/Vol] 37 mg/dL Critically low 40-60 [facility] Comment on above: Performed By: #### T 7, CMP, TSH, LIPID #### [facility] [address] [address] [address] Penny Arroyo Cholesterol in LDL [Mass/Vol] 67.6 mg/dL Normal [facility] Comment on above: Performed By: #### T 7, CMP, TSH, LIPID #### [facility] [address] [address] [address] Penny Arroyo Cholesterol.total/Chol esterol in HDL [Mass ratio] 4.0 {ratio} Normal [facility] Comment on above: Performed By: #### T 7, CMP, TSH, LIPID #### [facility] [address] [address] [address] Penny Arroyo HDL NORMAL > or = 60 mg/dl - LO W CARDIOVASCULAR RISK <40 mg/dl - HIGH CARDIOVASCULAR RISK Normal [facility] Comment on above: Performed By: #### T 7, CMP, TSH, LIPID #### [facility] [address] [address] [address] Penny Arroyo LDL CALC NORMAL SEE BELOW Normal [facility] Comment on above: Result Comment: <100 mg/dl OPTIMAL 100 - 129 mg/dl NEAR OR ABOVE OPTIMAL 130 - 159 mg/dl BORDERLINE HIGH 160 - 189 mg/dl HIGH >190 mg/dl VERY HIGH Performed By: #### T 7, CMP, TSH, LIPID #### [facility] [address] [address] [address] Penny Arroyo Triglyceride [Mass/Vol] 217 mg/dL Critically high <=150 [facility] Comment on above: Performed By: #### T 7, CMP, TSH, LIPID #### [facility] [address] [address] [address] Penny Arroyo VLDL CALC 43.4 mg/dL Normal [facility] Comment on above: Performed By: #### T 7, CMP, TSH, LIPID #### [facility] [address] [address] [address] Penny Arroyo PROF 14(COMP METB)on 023 Albumin [Mass/Vol] 4.2 g/dL Normal 3.4-5.0 [facility] Comment on above: Performed By: #### T 7, CMP, TSH, LIPID #### [facility] [address] [address] [address] Penny Arroyo Albumin/Globulin [Mass ratio] 1.4 {ratio} Normal [facility] Comment on above: Performed By: #### T 7, CMP, TSH, LIPID #### [facility] [address] [address] [address] Penny Arroyo ALP [Catalytic activity/Vol] 65 U/L Normal 46-116 [facility] Comment on above: Performed By: #### T 7, CMP, TSH, LIPID #### [facility] [address] [address] [address] Penny Arroyo ALT [Catalytic activity/Vol] 28 U/L Normal 16-63 [facility] Comment on above: Performed By: #### T 7, CMP, TSH, LIPID #### [facility] [address] [address] [address] Penny Arroyo Anion gap [Moles/Vol] 14.2 mmol/L Normal [facility] Comment on above: Performed By: #### T 7, CMP, TSH, LIPID #### [facility] [address] [address] [address] Penny Arroyo AST [Catalytic activity/Vol] 20 U/L Normal 15-37 [facility] Comment on above: Performed By: #### T 7, CMP, TSH, LIPID #### [facility] [address] [address] [address] Penny Arroyo Bilirubin [Mass/Vol] 0.7 mg/dL Normal 0.2-1.0 [facility] Comment on above: Performed By: #### T 7, CMP, TSH, LIPID #### [facility] [address] [address] [address] Penny Arroyo Calcium [Mass/Vol] 9.0 mg/dL Normal 8.5-10.1 [facility] Comment on above: Performed By: #### T 7, CMP, TSH, LIPID #### [facility] [address] [address] [address] Penny Arroyo Chloride [Moles/Vol] 103 mmol/L Normal 98-107 [facility] Comment on above: Performed By: #### T 7, CMP, TSH, LIPID #### [facility] [address] [place] [address] Dr. Penny Arroyo CO2 [Moles/Vol] 26.7 mmol/L Normal 21.0-32.0 [facility] Comment on above: Performed By: #### T 7, CMP, TSH, LIPID #### [facility] [address] [place] [address] Dr. Penny Arroyo Creatinine [Mass/Vol] 0.83 mg/dL Normal 0.70-1.30 [facility] Comment on above: Performed By: #### T 7, CMP, TSH, LIPID #### [facility] [address] [place] [address] Dr. Penny Arroyo EGFR-AF SRI LANKAN >60 Normal >=60 [facility] Comment on above: Performed By: #### T 7, CMP, TSH, LIPID #### [facility] [address] [place] [address] Dr. Penny Arroyo EGFR-NON AF SRI LANKAN >60 Normal >=60 [facility] Comment on above: Performed By: #### T 7, CMP, TSH, LIPID #### [facility] [address] [place] [address] Dr. Penny Arroyo Globulin (S) [Mass/Vol] 3.0 g/dL Normal [facility] Comment on above: Performed By: #### T 7, CMP, TSH, LIPID #### [facility] [address] [place] [address] Dr. Penny Arroyo Glucose [Mass/Vol] 89 mg/dL Normal 74-106 [facility] Comment on above: Performed By: #### T 7, CMP, TSH, LIPID #### [facility] [address] [place] [address] Dr. Penny Arroyo Potassium [Moles/Vol] 3.9 mmol/L Normal 3.5-5.1 [facility] Comment on above: Performed By: #### T 7, CMP, TSH, LIPID #### [facility] [address] [place], [place] [id number] Dr. Penny Arroyo Protein [Mass/Vol] 7.2 g/dL Normal 6.4-8.2 [facility] Comment on above: Performed By: #### T 7, CMP, TSH, LIPID #### [facility] [address] [place] [address] Dr. Penny Arroyo Sodium [Moles/Vol] 140 mmol/L Normal 136-145 [facility] Comment on above: Performed By: #### T 7, CMP, TSH, LIPID #### [facility] [address] [place] [address] Dr. Penny Arroyo Urea nitrogen [Mass/Vol] 15.0 mg/dL Normal 7.0-18.0 [facility] Comment on above: Performed By: #### T 7, CMP, TSH, LIPID #### [facility] [address] [place] [address] Dr. Penny Arroyo Urea nitrogen/Creatinine [Mass ratio] 18.1 mg/mg Normal [facility] Comment on above: Performed By: #### T 7, CMP, TSH, LIPID #### [facility] [address] [place] [address] Dr. Penny Arroyo TSHon 12-03-2022 TSH 2.567 uIU/mL Normal 0.358-3.[address] [facility] Comment on above: Performed By: #### T 7, CMP, TSH, LIPID #### [facility] [address] [place] [address] Dr. Penny Arroyo Covid-19 PCR (CVDTB)on 08-20 SARS-CoV-2 (COVID-19) RNA HALI+probe Ql (Unsp spec) Not detected Normal NOT DETECTED [facility] Comment on above: Result Comment: This test is not yet approved or cleared by the [place] FDA. When there are no FDA-approved or cleared tests available, and other criteria are met, FDA can make tests available under an emergency access mechanism called an Emergency Use Authorization (EUA). The EUA for this test is supported by the [place] of Health and Human Service's (HHS's) declaration [...] SARS-CoV-2. Performed By: #### C VDTBH #### [facility] [address] [place] [address] Dr. Penny Arroyo INFLUENZA A AND B AGon 09-08 INFLUENZA A AG Negative Normal NEGATIVE SEE COMMENT [facility] Comment on above: Performed By: #### I NFLUAB #### [facility] [address] [place] [address] Dr. Penny Arroyo INFLUENZA B AG Negative Normal NEGATIVE SEE COMMENT [facility] Comment on above: Performed By: #### I NFLUAB #### [facility] [address] [place] [address] Dr. Penny Arroyo INTERNAL CONTROLS Within Normal Limits Normal Wi thin Normal Limits [facility] Comment on above: Performed By: #### I NFLUAB #### [facility] [address] [place] [address] Dr. Penny Arroyo QUANTIFERON TB GOLD PLUSon 0 02-19-2022 QuantiFERON Criteria Comment Normal [facility] Comment on above: Result Comment: The QuantiFERON-TB Gold Plus result is determined by subtracting the Nil value from either TB antigen (Ag) tube. The mitogen tube serves as a control for the test. Performed By: #### Q NTTB #### [facility] [address] [place] [address] Dr. Penny Arroyo QuantiFERON Incubation Incubation performed. [facility] Comment on above: Performed By: #### Q NTTB #### [facility] [address] [place] [address] Dr. Penny Arroyo QuantiFERON Mitogen Value >10.00 Normal [facility] Comment on above: Performed By: #### Q NTTB #### [facility] [address] [address] [address] Penny Arroyo QuantiFERON Nil Value 0.06 IU/mL Normal [facility] Comment on above: Performed By: #### Q NTTB #### [facility] [address] [address] [address] Penny Arroyo QuantiFERON TB1 Ag Value 0.05 IU/mL Normal [facility] Comment on above: Performed By: #### Q NTTB #### [facility] [address] [address] [address] Penny Arroyo QuantiFERON TB2 Ag Value 0.05 IU/mL Normal [facility] Comment on above: Performed By: #### Q NTTB #### [facility] [address] [address] [address] Penny Arroyo QuantiFERON-TB Gold Plus Negative Normal Negative [facility] Comment on above: Result Comment: Chem iluminescence immunoassay methodology Performed By: #### Q NTTB #### [facility] [address] [address] [address] Penny Arroyo Coding Summary.on 05-10-2019 Coding Summary. CODING DATE: 05/10/2019 [facility] STATUS: Home (Routine DC) PAYOR: [facility] [place] [facility] DESCRIPTION 5521 Level 1 Imaging without [...] CphT Date Saved: 05/10/2019 11:17 am Normal [facility] XR Ribs 2 Views Lefton [...] Baker DO Transcribed by: WILLIAM Technologist: HARISH Brunnre [facility] Encounters Encounter Date Encounter Type Care Provider Facility Start: 04-02-2024 End: 04-02-2024 ambulatory GAURANG SANTANA Not Available Start: 03-21-2024 End: 03-21-2024 Patient encounter procedure MD Amanda Cannon Work Phone: [facility] [place] Work Phone: Start: 03-21-2024 End: 03-21-2024 ambulatory MD Amanda Cannon Work Phone: [facility] Work Phone: Start: 02-09-2024 End: 02-09-2024 ambulatory VERONICA HOLLIS Not Available Start: 12-29-2023 End: 12-29-2023 ambulatory VERONICA HOLLIS Not Available Start: 12-11-2022 Encounter for genera l adult medical examination without abnormal findings DR AMANDA CANNON . [facility] Start: 12-03-2022 End: 12-04-[address] AMANDA CANNON . Facility:[facility] Start: 12-03-2022 End: 12-04-2022 Encounter for general adult medical examination without abnormal findings DR AMANDA CANNON . Facility:[facility] Start: 09-08-2022 End: 09-08-[address] AMANDA CANNON . Facility:[facility] Start: 02-16-2022 End: 02-17-[address] OPAL BURNS Facility:[facility] Payers Date Payer Category Payer Self-pay [id number] 2023 Unknown [id number] 1989 Unknown [id number] 2.16.84 [id number] 1989 Unknown [id number] 2.16.84 [id number] 1989 Unknown [id number] 2.16.84 0.1.195338.3.579.2.593 1989 Unknown [id number] 2.16.84 0.1.798341.3.579.2.1259 1989 Unknown [id number] 2.16.84 0.1.829563.3.579.2.1259 1989 Unknown [id number] 2.16.84 0.1.838118.3.579.2.9 1989 Unknown [id number] 2.16.84 0.1.086201.3.579.2.9 1989 Unknown [id number] 2.16.84 0.1.836548.3.579.2.1259 1989 Unknown [id number] 2.16.84 0.1.227219.3.579.2.1259 1989 Unknown [id number] 2.16.84 0.1.923351.3.579.2.9 1989 Unknown [id number] 2.16.84 0.1.074148.3.579.2.1259 1959 Unknown [id number] 1959 Unknown [id number] Unknown [id number] 2.16.8 [id number] Social History Date Type Detail Facility [facility] Work Phone: Start: 1990 Sex Assigned At Male F [facility] Clinical Note 03-21-2024 Note Date & Type Note Facility 03-21-2024 Note [facility] Sperm Rapid Progressive March 21, 2024 7:30am 57 % Clinical Note 03-21-2024 Note Date & Type Note Facility 03-21-2024 Note [facility] Sperm Non-Progressive March 21, 2024 7:30am 7 % Evaluation note Note Date & Type Note Facility Evaluation note No assessment information availa melissa [facility] Work Phone: Summary Purpose Family History [...] and content) DATE CREATED AUTHOR 05/11/2019 [facility] DATE CREATED AUTHOR AUTHOR'S ORGANIZ ATION 12/12/2022 [facility] DATE CREATED AUTHOR AUTHOR'S ORGANIZ ATION 04/06/2024 [facility] DATE CREATED AUTHOR AUTHOR'S ORGANIZ ATION 04/06/2024 [facility] EPIC Care Teams (unrecognized sec tion [...] BE BASED ON THE PRIMARY CLINICAL RECORDS. [employer] provides no warranty or guarantee of the accuracy or completeness of information in this document.
--- NOTE | 2024-04-29 09:20 | ED_ITS ---
HPI - Wound/Laceration General Chief Complaint: Wound/Laceration Stated Complaint: REDRESS INJURY Time Seen by Provider: 04/29/24 09:13 Source: patient Mode of arrival: walk-in Limitations: no limitations History of Present Illness HPI narrative: 33-year-old male presents to the emergency department for wound check as instructed. 2 days ago he had his nail avulsed and skin avulsion. He has been taking the antibiotic but the pain medicine seems to be making him nauseous. He has an appointment with orthopedics tomorrow. Related Data Home Medications ?Medication ?Instructions ?Recorded ?Confirmed atomoxetine 60 mg capsule 60 mg PO QDAY 04/28/23 04/28/23 pantoprazole 40 mg tablet,delayed 40 mg PO Q12H 04/28/23 04/28/23 release Previous Rx's ?Medication ?Instructions ?Recorded acetaminophen 300 mg-codeine 30 mg 1 tab PO Q6H PRN pain 5 days #20 04/27/24 tablet tabs sulfamethoxazole 800 1 tab PO BID 10 days #20 tabs 04/27/24 mg-trimethoprim 160 mg tablet (Bactrim DS) ondansetron 4 mg disintegrating 4 mg PO Q6H PRN nausea and 04/29/24 tablet vomiting #20 tabs tramadol 50 mg tablet 50 mg PO Q6H PRN pain 5 days #20 04/29/24 tabs Allergies Allergy/AdvReac Type Severity Reaction Status Date / Time cefadroxil [From Duricef] Allergy Unknown Abdominal Verified 04/29/24 09:08 Pain Review of Systems ROS Narrative A ten point review of systems is negative except as noted above. PFSH PFSH Social History Smoking status: Never smoker Exam Narrative Exam Narrative: Nurses note and vital signs reviewed and patient is not hypoxic. General: The patient appears well and in no apparent distress. Patient is resting comfortably on cart. Skin: Warm, dry, no pallor noted. There is no rash noted. Head: Normocephalic, atraumatic Eye: Normal conjunctiva, no drainage Ears, Nose, Mouth, and Throat: oral mucosa is moist. Nares patent. Cardiovascular: Regular Rate and Rhythm Respiratory: Patient is in no distress, no accessory muscle use Back: non-tender GI: Normal bowel sounds, no tenderness to palpation, no masses appreciated. No rebound, guarding, or rigidity noted. Musculoskeletal: The wound appears appropriate. There is no evidence of an infection. There is no drainage of surrounding erythema. Neurological: Awake and alert Psychiatric: Cooperative Constitutional Vital Signs, click to edit/add: Last Vital Signs Temp 97.8 F 04/29/24 09:04 Pulse 71 04/29/24 09:04 Resp 17 04/29/24 09:04 BP 163/97 H 04/29/24 09:04 Pulse Ox 99 04/29/24 09:04 Course Vital Signs Vital signs: Vital Signs Temperature 97.8 F 04/29/24 09:04 Pulse Rate 71 04/29/24 09:04 Respiratory Rate 17 04/29/24 09:04 Blood Pressure 163/97 H 04/29/24 09:04 Pulse Oximetry 99 04/29/24 09:04 Temperature 97.8 F 04/29/24 09:04 Pulse Rate 71 04/29/24 09:04 Respiratory Rate 17 04/29/24 09:04 Blood Pressure 163/97 H 04/29/24 09:04 Pulse Oximetry 99 04/29/24 09:04 MDM - Wound/Laceration MDM Narrative Medical decision making narrative: The wound is redressed and he will see the orthopedist tomorrow for follow-up. Differential Diagnosis Differential diagnosis: Likely laceration and avulsion of skin Discharge Plan Discharge Stand Alone Forms: Portal Instructions Chief Complaint: Wound/Laceration Clinical Impression: Encounter for post-traumatic wound check Patient Disposition: Home, Self-Care Time of Disposition Decision: 09:16 Condition: Good Mode of Transportation: Private Vehicle Prescriptions / Home Meds: New tramadol 50 mg tablet 50 mg PO Q6H PRN (Reason: pain) 5 Days Qty: 20 0RF ondansetron 4 mg tablet,disintegrating 4 mg PO Q6H PRN (Reason: nausea and vomiting) Qty: 20 0RF No Action atomoxetine 60 mg capsule 60 mg PO QDAY pantoprazole 40 mg tablet,delayed release (DR/EC) 40 mg PO Q12H acetaminophen-codeine 300-30 mg tablet 1 tab PO Q6H PRN (Reason: pain) 5 Days Qty: 20 0RF sulfamethoxazole-trimethoprim [Bactrim DS] 800-160 mg tablet 1 tab PO BID 10 Days Qty: 20 0RF Print Language: Lithuanian Instructions: Skin Avulsion (ED) Additional Instructions: Discontinue the Tylenol 3 Referrals: Martínez Kline MD [Primary Care Provider] - 1 week
== END 2024-04-29 09:48 | disposition home or self-care (01) ==
PROVIDERS: Emergency Provider Emergency Medicine; PCP Family Medicine
DX: Z48.00 Encounter for change or removal of nonsurgical wound dressing (principal)
CPT/HCPCS: 99283

== ENCOUNTER 2024-04-30 07:33 | Outpatient (OUT) | payer BC, SELFPAY ==
--- OUTSIDE RECORDS SUMMARY | 2024-04-30 07:54 | XMS_ITS | CCD ---
Author Organization [facility] Care Team Providers Care Mill Recorder Name Role Phone DAVIS ., DR PATEL [...] Unavailable MD Amanda Cannon Primary Care Provider [phone] MD Tani Rivero Attending Provider Amanda Cannon Primary Care Unavailable Tani Rivero Attending Unavailable Tani Rivero Admitting Unavailable VERONICA HOLLIS Referring Unavailable VERONICA HOLLIS Attending Unavailable BEATRIZ MATOS Referring Unavailable VERONICA HOLLIS Attending Unavailable GAURANG SANTANA Attending Unavailable Allergies Allergy Classification Reported Allergen(s) Allergy Type Date of Onset Reaction(s) Facility (1 source) Cefadroxil Drug Allergy 06-11-2015 [facility] Repository Problems Active Problems Problem Classification [...] te Episodic/Chronic Other aftercare (4 sources) 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 Fi [facility] Comment on above: USED QUICKCHECK FOR LIQUIFICATION Semen Round Cell Concentration Moderate [facility] Semen WBC Concentration <1.0 M/mL <0.9 [facility] Sperm % Non-Motile 36 % [facility] Sperm Motility Total 64.0 % >40 [facility] Qualitative semen viscosityO rdered By: RHONDA Rivero on 03-21-2024 Viscosity Ql (Lelia) Abnormal Abnormal Normal [facility] Semen Analysis, Fertilityon 03-21-2024 Debris/Round Cells Moderate Normal [facility] Comment on above: Order Comment: Metho d of Collection:: Masturbation Has the patient had a vasectomy?: N Type of Specimen Container:: Sterile Container Abstinence Period:: 5 DAYS Kept at body temperature?: Y Any Collection or Transport Problems?: NONE Performed By: #### S EMCOMP #### [facility] [address] [place] [address] [place] Immotile Sperm 36 % Normal [facility] Comment on above: Order Comment: Metho d of Collection:: Masturbation Has the patient had a vasectomy?: N Type of Specimen Container:: Sterile Container Abstinence Period:: 5 DAYS Kept at body temperature?: Y Any Collection or Transport Problems?: NONE Performed By: #### S EMCOMP #### [facility] [address] [place] [id number] [place] Non-Progression Sperm Motili 7 % Normal [facility] Comment on above: Order Comment: Metho d of Collection:: Masturbation Has the patient had a vasectomy?: N Type of Specimen Container:: Sterile Container Abstinence Period:: 5 DAYS Kept at body temperature?: Y Any Collection or Transport Problems?: NONE Performed By: #### S EMCOMP #### [address] Normal Sperm Morphology 14.0 % Normal >=4.0 [facility] Comment on above: Order Comment: Metho d of Collection:: Masturbation Has the patient had a vasectomy?: N Type of Specimen Container:: Sterile Container Abstinence Period:: 5 DAYS Kept at body temperature?: Y Any Collection or Transport Problems?: NONE Performed By: #### S EMCOMP #### [address] Rapid Progression Sperm Motili 57 % Normal [facility] Comment on above: Order Comment: Metho d of Collection:: Masturbation Has the patient had a vasectomy?: N Type of Specimen Container:: Sterile Container Abstinence Period:: 5 DAYS Kept at body temperature?: Y Any Collection or Transport Problems?: NONE Performed By: #### S EMCOMP #### [address] Semen Comment . Normal [facility] Comment on above: Order Comment: Metho d of Collection:: Masturbation Has the patient had a vasectomy?: N Type of Specimen Container:: Sterile Container Abstinence Period:: 5 DAYS Kept at body temperature?: Y Any Collection or Transport Problems?: NONE Result Comment: USED QUICKCHECK FOR LIQUIFICATION PERFORMED BY: [place] [address] PATHOLOGIST DEVELOPMENT ARCHITECT IGLESIA VARGAS M.D. Performed By: #### S EMCOMP #### [address] Semen Liquefaction Abnormal Critically abnormal <=60 min [facility] Comment on above: Order Comment: Metho d of Collection:: Masturbation Has the patient had a vasectomy?: N Type of Specimen Container:: Sterile Container Abstinence Period:: 5 DAYS Kept at body temperature?: Y Any Collection or Transport Problems?: NONE Performed By: #### S EMCOMP #### [address] Semen Viscosity Abnormal Critically abnormal Normal [facility] Comment on above: Order Comment: Metho d of Collection:: Masturbation Has the patient had a vasectomy?: N Type of Specimen Container:: Sterile Container Abstinence Period:: 5 DAYS Kept at body temperature?: Y Any Collection or Transport Problems?: NONE Performed By: #### S EMCOMP #### [address] Semen Volume 2.5 mL Normal >=1.5 [facility] Comment on above: Order Comment: Metho d of Collection:: Masturbation Has the patient had a vasectomy?: N Type of Specimen Container:: Sterile Container Abstinence Period:: 5 DAYS Kept at body temperature?: Y Any Collection or Transport Problems?: NONE Performed By: #### S EMCOMP #### [place] [address] [place] Sperm Concentration 135.4 Normal >=15 [facility] Comment on above: Order Comment: Metho d of Collection:: Masturbation Has the patient had a vasectomy?: N Type of Specimen Container:: Sterile Container Abstinence Period:: 5 DAYS Kept at body temperature?: Y Any Collection or Transport Problems?: NONE Performed By: #### S EMCOMP #### [address] Total Motility (CO+MOLD YARD WORKER) 64.0 % Normal >=40 (CO+MOLD YARD WORKER) [facility] Comment on above: Order Comment: Metho d of Collection:: Masturbation Has the patient had a vasectomy?: N Type of Specimen Container:: Sterile Container Abstinence Period:: 5 DAYS Kept at body temperature?: Y Any Collection or Transport Problems?: NONE Performed By: #### S EMCOMP #### [place] [address] [place] WBC Concent, Semen <1.0 Normal <1.0 [facility] Comment on above: Order Comment: Metho d of Collection:: Masturbation Has the patient had a vasectomy?: N Type of Specimen Container:: Sterile Container Abstinence Period:: 5 DAYS Kept at body temperature?: Y Any Collection or Transport Problems?: NONE Performed By: #### S EMCOMP #### [place] [address] [place] Semen Analysis, FertilityOrd ered By: RHONDA Rivero on 03-21-2024 Semen Appearance Normal Normal Normal [facility] Comment on above: Order Comment: Metho d of Collection:: Masturbation Has the patient had a vasectomy?: N Type of Specimen Container:: Sterile Container Abstinence Period:: 5 DAYS Kept at body temperature?: Y Any Collection or Transport Problems?: NONE Performed By: #### S EMCOMP #### [address] Semen pH 8.0 Normal >=7.2 [facility] Comment on above: Order Comment: Metho d of Collection:: Masturbation Has the patient had a vasectomy?: N Type of Specimen Container:: Sterile Container Abstinence Period:: 5 DAYS Kept at body temperature?: Y Any Collection or Transport Problems?: NONE Performed By: #### S EMCOMP #### [facility] [address] [place] [address] Semen liquefaction time merle urementOrdered By: RHONDA Rivero on 03-21-2024 Liquefaction (Lelia) [Time] Abnormal Abnormal <=60 min [facility] Semen volumeOrdered By: DC Rivero on 03-21-2024 Specimen volume (Lelia) 2.5 mL >1.5 [facility] Sperm countOrdered By: JACOBO Rivero on 03-21-2024 Spermatozoa (Lelia) [#/Vol] 135.4 M/mL >15 [facility] Sperm morphologyOrdered By: RHONDA Rivero on 03-21-2024 Spermatozoa Nom (Lelia) 14.0 % >4.0 [facility] INSULINon 12-04-2022 Insulin 3.0 uIU/mL Normal 2.6-24.9 [facility] Comment on above: Performed By: #### I NSULIN #### [facility] [address] [address] [address] Penny Arroyo CBC AUTO DIFFon 12-03-2022 BASO # 0.0 103/ul Normal 0.0-0.1 [facility] Comment on above: Performed By: #### C BC #### [facility] [address] [place] [address] Dr. Penny Arroyo Basophils/100 WBC (Bld) 0.3 % Normal 0.2-2.0 [facility] Comment on above: Performed By: #### C BC #### [facility] [address] [place] [address] Dr. Penny Arroyo EO # 0.2 103/ul Normal 0.0-0.7 [facility] Comment on above: Performed By: #### C BC #### [facility] [address] [place] [address] Dr. Penny Arroyo Eosinophils/100 WBC (Bld) 2.3 % Normal 0.9-7.0 [facility] Comment on above: Performed By: #### C BC #### [facility] [address] [place] [address] Dr. Penny Arroyo Erythrocyte distribution width (RBC) [Ratio] 12.4 % Normal 11.0-15.0 [facility] Comment on above: Performed By: #### C BC #### [facility] [address] [place] [address] Dr. Penny Arroyo Hematocrit (Bld) [Volume fraction] 43.5 % Normal 42.0-54.0 [facility] Comment on above: Performed By: #### C BC #### [facility] [address] [place] [address] Dr. Penny Arroyo Hemoglobin (Bld) [Mass/Vol] 15.7 g/dL Normal 14.0-18.0 [facility] Comment on above: Performed By: #### C BC #### [facility] [address] [place] [address] Dr. Penny Arroyo IG # 0.02 10e3/ul Normal 0.00-0.03 [facility] Comment on above: Performed By: #### C BC #### [facility] [address] [place] [address] Dr. Penny Arroyo IG % 0.3 % Normal 0.0-0.5 [facility] Comment on above: Performed By: #### C BC #### [facility] [address] [address] [address] Penny Arroyo LYMPH # 2.9 103/ul Normal 1.2-3.8 [facility] Comment on above: Performed By: #### C BC #### [facility] [address] [address] [address] Penny Arroyo Lymphocytes/100 WBC (Bld) 41.8 % Normal 20.5-60.0 [facility] Comment on above: Performed By: #### C BC #### [facility] [address] [address] [address] Penny Arroyo MANUAL DIFF REQ NO Normal [facility] Comment on above: Performed By: #### C BC #### [facility] [address] [place] [address] Dr. Penny Arroyo MCH (RBC) [Entitic mass] 32.2 pg Normal 25.9-34.0 [facility] Comment on above: Performed By: #### C BC #### [facility] [address] [place] [address] Dr. Penny Arroyo MCHC (RBC) [Mass/Vol] 36.1 g/dL Critically high 29.9-35.2 [facility] Comment on above: Performed By: #### C BC #### [facility] [address] [place] [address] Dr. Penny Arroyo MCV (RBC) [Entitic vol] 89.3 fL Normal 80.0-94.0 [facility] Comment on above: Performed By: #### C BC #### [facility] [address] [place] [address] Dr. Penny Arroyo MONO # 0.6 103/ul Normal 0.3-0.8 [facility] Comment on above: Performed By: #### C BC #### [facility] [address] [place] [address] Dr. Penny Arroyo Monocytes/100 WBC (Bld) 9.1 % Normal 1.7-12.0 [facility] Comment on above: Performed By: #### C BC #### [facility] [address] [address] [address] Penny Arroyo NEUT # 3.2 103/ul Normal 1.4-6.5 [facility] Comment on above: Performed By: #### C BC #### [facility] [address] [place] [address] Dr. Penny Arroyo Neutrophils/100 WBC (Bld) 46.2 % Normal 43.0-75.0 [facility] Comment on above: Performed By: #### C BC #### [facility] [address] [place] [address] Dr. Penny Arroyo Platelet mean volume (Bld) [Entitic vol] 9.7 fL Normal 9.5-13.5 [facility] Comment on above: Performed By: #### C BC #### [facility] [address] [place] [address] Dr. Penny Arroyo PLT 257 103/ul Normal 150-450 [facility] Comment on above: Performed By: #### C BC #### [facility] [address] [place] [address] Dr. Penny Arroyo RBC 4.87 106/ul Normal 4.70-6.10 [facility] Comment on above: Performed By: #### C BC #### [facility] [address] [place] [address] Dr. Penny Arroyo WBC 7.0 103/ul Normal 4.0-11.0 [facility] Comment on above: Performed By: #### C BC #### [facility] [address] [place] [address] Dr. Penny Arroyo FREE THYROXINE INDEX T7on FTI 3.17 Normal 1.30-4.50 [facility] Comment on above: Performed By: #### T 7, CMP, TSH, LIPID #### [facility] [address] [place] [address] Dr. Penny Arroyo T3U 36.0 % Normal 33.0-40.0 [facility] Comment on above: Performed By: #### T 7, CMP, TSH, LIPID #### [facility] [address] [address] [address] Penny Arroyo T4 [Mass/Vol] 8.80 ug/dL Normal 4.50-12.10 [facility] Comment on above: Performed By: #### T 7, CMP, TSH, LIPID #### [facility] [address] [address] [address] Penny Arroyo GLYCOHEMOGLOBIN A1Con 2022 ADA RECOMMENDATION SEE BELOW Normal [facility] Comment on above: Result Comment: ADA RECOMMENDED LIMIT 4.0 - 6.0 ADA THERAPEUTIC TARGET < 7.0 ACTION SUGGESTED > 7.0 Performed By: #### A 1C #### [facility] [address] [address] [address] Penny Arroyo Glucose [Mass/Vol] 88 mg/dL Normal [facility] Comment on above: Performed By: #### A 1C #### [facility] [address] [place] [address] Dr. Penny Arroyo HbA1c (Bld) [Mass fraction] 4.7 % Normal 4.5-6.2 [facility] Comment on above: Performed By: #### A 1C #### [facility] [address] [place] [address] Dr. Penny Arroyo LIPID PROFILEon 12-03-2022 CHOL-HDL RATIO NORM SEE BELOW Normal [facility] Comment on above: Result Comment: 3.3 - 4.4 LOW RISK 4.4 - 7.1 AVERAGE RISK 7.1 - 11.0 MODERATE RISK >11.0 HIGH RISK Performed By: #### T 7, CMP, TSH, LIPID #### [facility] [address] [place] [address] Dr. Penny Arroyo Cholesterol [Mass/Vol] 148 mg/dL Normal <=200 [facility] Comment on above: Performed By: #### T 7, CMP, TSH, LIPID #### [facility] [address] [place] [address] Dr. Penny Arroyo Cholesterol in HDL [Mass/Vol] 37 mg/dL Critically low 40-60 [facility] Comment on above: Performed By: #### T 7, CMP, TSH, LIPID #### [facility] [address] [address] [address] Penny Arroyo Cholesterol in LDL [Mass/Vol] 67.6 mg/dL Normal [facility] Comment on above: Performed By: #### T 7, CMP, TSH, LIPID #### [facility] [address] [address] [address] Penny Arroyo Cholesterol.total/Chol esterol in HDL [Mass ratio] 4.0 {ratio} Normal [facility] Comment on above: Performed By: #### T 7, CMP, TSH, LIPID #### [facility] [address] [address] [address] Penny Arroyo HDL NORMAL > or = 60 mg/dl - LO W CARDIOVASCULAR RISK <40 mg/dl - HIGH CARDIOVASCULAR RISK Normal [facility] Comment on above: Performed By: #### T 7, CMP, TSH, LIPID #### [facility] [address] [address] [address] Penny Arroyo LDL CALC NORMAL SEE BELOW Normal [facility] Comment on above: Result Comment: <100 mg/dl OPTIMAL 100 - 129 mg/dl NEAR OR ABOVE OPTIMAL 130 - 159 mg/dl BORDERLINE HIGH 160 - 189 mg/dl HIGH >190 mg/dl VERY HIGH Performed By: #### T 7, CMP, TSH, LIPID #### [facility] [address] [address] [address] Penny Arroyo Triglyceride [Mass/Vol] 217 mg/dL Critically high <=150 [facility] Comment on above: Performed By: #### T 7, CMP, TSH, LIPID #### [facility] [address] [address] [address] Penny Arroyo VLDL CALC 43.4 mg/dL Normal [facility] Comment on above: Performed By: #### T 7, CMP, TSH, LIPID #### [facility] [address] [address] [address] Penny Arroyo PROF 14(COMP METB)on 023 Albumin [Mass/Vol] 4.2 g/dL Normal 3.4-5.0 [facility] Comment on above: Performed By: #### T 7, CMP, TSH, LIPID #### [facility] [address] [address] [address] Penny Arroyo Albumin/Globulin [Mass ratio] 1.4 {ratio} Normal [facility] Comment on above: Performed By: #### T 7, CMP, TSH, LIPID #### [facility] [address] [address] [address] Penny Arroyo ALP [Catalytic activity/Vol] 65 U/L Normal 46-116 [facility] Comment on above: Performed By: #### T 7, CMP, TSH, LIPID #### [facility] [address] [address] [address] Penny Arroyo ALT [Catalytic activity/Vol] 28 U/L Normal 16-63 [facility] Comment on above: Performed By: #### T 7, CMP, TSH, LIPID #### [facility] [address] [address] [address] Penny Arroyo Anion gap [Moles/Vol] 14.2 mmol/L Normal [facility] Comment on above: Performed By: #### T 7, CMP, TSH, LIPID #### [facility] [address] [address] [address] Penny Arroyo AST [Catalytic activity/Vol] 20 U/L Normal 15-37 [facility] Comment on above: Performed By: #### T 7, CMP, TSH, LIPID #### [facility] [address] [address] [address] Penny Arroyo Bilirubin [Mass/Vol] 0.7 mg/dL Normal 0.2-1.0 [facility] Comment on above: Performed By: #### T 7, CMP, TSH, LIPID #### [facility] [address] [address] [address] Penny Arroyo Calcium [Mass/Vol] 9.0 mg/dL Normal 8.5-10.1 [facility] Comment on above: Performed By: #### T 7, CMP, TSH, LIPID #### [facility] [address] [address] [address] Penny Arroyo Chloride [Moles/Vol] 103 mmol/L Normal 98-107 [facility] Comment on above: Performed By: #### T 7, CMP, TSH, LIPID #### [facility] [address] [place] [address] Dr. Penny Arroyo CO2 [Moles/Vol] 26.7 mmol/L Normal 21.0-32.0 [facility] Comment on above: Performed By: #### T 7, CMP, TSH, LIPID #### [facility] [address] [place] [address] Dr. Penny Arroyo Creatinine [Mass/Vol] 0.83 mg/dL Normal 0.70-1.30 [facility] Comment on above: Performed By: #### T 7, CMP, TSH, LIPID #### [facility] [address] [place] [address] Dr. Penny Arroyo EGFR-AF EQUATORIAL GUINEAN >60 Normal >=60 [facility] Comment on above: Performed By: #### T 7, CMP, TSH, LIPID #### [facility] [address] [place] [address] Dr. Penny Arroyo EGFR-NON AF EQUATORIAL GUINEAN >60 Normal >=60 [facility] Comment on above: Performed By: #### T 7, CMP, TSH, LIPID #### [facility] [address] [place] [address] Dr. Penny Arroyo Globulin (S) [Mass/Vol] 3.0 g/dL Normal [facility] Comment on above: Performed By: #### T 7, CMP, TSH, LIPID #### [facility] [address] [place] [address] Dr. Penny Arroyo Glucose [Mass/Vol] 89 mg/dL Normal 74-106 [facility] Comment on above: Performed By: #### T 7, CMP, TSH, LIPID #### [facility] [address] [place] [address] Dr. Penny Arroyo Potassium [Moles/Vol] 3.9 mmol/L Normal 3.5-5.1 [facility] Comment on above: Performed By: #### T 7, CMP, TSH, LIPID #### [facility] [address] [place], [place] [id number] Dr. Penny Arroyo Protein [Mass/Vol] 7.2 g/dL Normal 6.4-8.2 [facility] Comment on above: Performed By: #### T 7, CMP, TSH, LIPID #### [facility] [address] [place] [address] Dr. Penny Arroyo Sodium [Moles/Vol] 140 mmol/L Normal 136-145 [facility] Comment on above: Performed By: #### T 7, CMP, TSH, LIPID #### [facility] [address] [place] [address] Dr. Penny Arroyo Urea nitrogen [Mass/Vol] 15.0 mg/dL Normal 7.0-18.0 [facility] Comment on above: Performed By: #### T 7, CMP, TSH, LIPID #### [facility] [address] [place] [address] Dr. Penny Arroyo Urea nitrogen/Creatinine [Mass ratio] 18.1 mg/mg Normal [facility] Comment on above: Performed By: #### T 7, CMP, TSH, LIPID #### [facility] [address] [place] [address] Dr. Penny rAroyo TSHon 12-03-2022 TSH 2.567 uIU/mL Normal 0.358-3.740 [facility] Comment on above: Performed By: #### T 7, CMP, TSH, LIPID #### [facility] [address] [place] [address] Dr. Penny Arroyo Covid-19 PCR (CVDTB)on 08-20 SARS-CoV-2 (COVID-19) RNA HALI+probe Ql (Unsp spec) Not detected Normal NOT DETECTED [facility] Comment on above: Result Comment: This test is not yet approved or cleared by the [place] FDA. When there are no FDA-approved or cleared tests available, and other criteria are met, FDA can make tests available under an emergency access mechanism called an Emergency Use Authorization (EUA). The EUA for this test is supported by the [place] of Health and Human Service's (HHS's) declaration [...] SARS-CoV-2. Performed By: #### C VDTBH #### [facility] [address] [place] [address] Dr. Penny Arroyo INFLUENZA A AND B AGon 09-08 INFLUENZA A AG Negative Normal NEGATIVE SEE COMMENT [facility] Comment on above: Performed By: #### I NFLUAB #### [facility] [address] [place] [address] Dr. Penny Arroyo INFLUENZA B AG Negative Normal NEGATIVE SEE COMMENT [facility] Comment on above: Performed By: #### I NFLUAB #### [facility] [address] [place] [address] Dr. Penny Arroyo INTERNAL CONTROLS Within Normal Limits Normal Wi thin Normal Limits [facility] Comment on above: Performed By: #### I NFLUAB #### [facility] [address] [place] [address] Dr. Penny Arroyo QUANTIFERON TB GOLD PLUSon 0 02-19-2022 QuantiFERON Criteria Comment Normal [facility] Comment on above: Result Comment: The QuantiFERON-TB Gold Plus result is determined by subtracting the Nil value from either TB antigen (Ag) tube. The mitogen tube serves as a control for the test. Performed By: #### Q NTTB #### [facility] [address] [place] [address] Dr. Penny Arroyo QuantiFERON Incubation Incubation performed. [facility] Comment on above: Performed By: #### Q NTTB #### [facility] [address] [place] [address] Dr. Penny Arroyo QuantiFERON Mitogen Value >10.00 Normal [facility] Comment on above: Performed By: #### Q NTTB #### [facility] [address] [address] [address] Penny Arroyo QuantiFERON Nil Value 0.06 IU/mL Normal [facility] Comment on above: Performed By: #### Q NTTB #### [facility] [address] [address] [address] Penny Arroyo QuantiFERON TB1 Ag Value 0.05 IU/mL Normal [facility] Comment on above: Performed By: #### Q NTTB #### [facility] [address] [address] [address] Penny Arroyo QuantiFERON TB2 Ag Value 0.05 IU/mL Normal [facility] Comment on above: Performed By: #### Q NTTB #### [facility] [address] [address] [address] Penny Arroyo QuantiFERON-TB Gold Plus Negative Normal Negative [facility] Comment on above: Result Comment: Chem iluminescence immunoassay methodology Performed By: #### Q NTTB #### [facility] [address] [address] [address] Penny Arroyo Coding Summary.on 05-10-2019 Coding Summary. CODING DATE: 05/10/2019 [facility] STATUS: Home (Routine DC) PAYOR: [facility] [place] [facility] DESCRIPTION 5521 Level 1 Imaging without [...] CphT Date Saved: 05/10/2019 11:17 am Normal [facility] XR Ribs 2 Views Lefton 05-07 [...] DO Transcribed by: WILLIAM Technologist: HARISH Brunner [facility] Encounters Encounter Date Encounter Type Care Provider Facility Start: 04-02-2024 End: 04-02-2024 ambulatory GAURANG SANTANA Not Available Start: 03-21-2024 End: 03-21-2024 Patient encounter procedure MD Amanda Cannon Work Phone: [facility] [place] Work Phone: Start: 03-21-2024 End: 03-21-2024 ambulatory MD Amanda Cannon Work Phone: [facility] Work Phone: Start: 02-09-2024 End: 02-09-2024 ambulatory VERONICA HOLLIS Not Available Start: 12-29-2023 End: 12-29-2023 ambulatory VERONICA HOLLIS Not Available Start: 12-11-2022 Encounter for genera l adult medical examination without abnormal findings DR AMANDA CANNON . [facility] Start: 12-03-2022 End: 12-04-[address] AMANDA CANNON . Facility:[facility] Start: 12-03-2022 End: 12-04-2022 Encounter for general adult medical examination without abnormal findings DR AMANDA CANNON . Facility:[facility] Start: 09-08-2022 End: 09-08-[address] AMANDA CANNON . Facility:[facility] Start: 02-16-2022 End: 02-17-[address] OPAL BURNS Facility:[facility] Payers Date Payer Category Payer Self-pay [id number] 2023 Unknown [id number] 1989 Unknown [id number] 2.16.84 [id number] 1989 Unknown [id number] 2.16.84 0.1.254617.3.579.2.593 1989 Unknown [id number] 2.16.84 0.1.218652.3.579.2.593 1989 Unknown [id number] 2.16.84 0.1.873700.3.579.2.1259 1989 Unknown [id number] 2.16.84 0.1.088902.3.579.2.1259 1989 Unknown [id number] 2.16.84 0.1.485165.3.579.2.9 1989 Unknown [id number] 2.16.84 0.1.974926.3.579.2.9 1989 Unknown [id number] 2.16.84 0.1.976354.3.579.2.1259 1989 Unknown [id number] 2.16.84 0.1.913484.3.579.2.1259 1989 Unknown [id number] 2.16.84 0.1.390504.3.579.2.9 1989 Unknown [id number] 2.16.84 0.1.301417.3.579.2.1259 1959 Unknown [id number] 1959 Unknown [id number] Unknown [id number] 2.16.8 40.1.421999.3.579.2.531 Social History Date Type Detail Facility [facility] Work Phone: Start: 1990 Sex Assigned At Male [facility] Clinical Note 03-21-2024 Note Date & Type Note Facility 03-21-2024 Note [facility] Sperm Rapid Progressive March 21, 2024 7:30am 57 % Clinical Note 03-21-2024 Note Date & Type Note Facility 03-21-2024 Note [facility] Sperm Non-Progressive March 21, 2024 7:30am 7 % Evaluation note Note Date & Type Note Facility Evaluation note No assessment information availa melissa [facility] Work Phone: Summary Purpose Family History [...] CREATED AUTHOR AUTHOR'S ORGANIZ ATION 12/12/2022 [facility] DATE CREATED AUTHOR AUTHOR'S ORGANIZ ATION 04/06/2024 [facility] DATE CREATED AUTHOR AUTHOR'S ORGANIZ ATION 04/06/2024 [facility] EPIC Care Teams (unrecognized sec tion [...] BE BASED ON THE PRIMARY CLINICAL RECORDS. [employer] provides no warranty or guarantee of the accuracy or completeness of information in this document.
[2024-04-30 08:09] LABS: Basophils Percent Auto 0.5 % (0.2-2.0); Eosinophils Absolute Auto 0.2 10^3/uL (0.0-0.7); Eosinophils Percent Auto 3.1 % (0.9-7.0); Hematocrit 45.9 % (42.0-54.0); Immature Granulocytes Abs Auto 0.01 10^3/uL (0.00-0.03); Immature Granulocytes Pct Auto 0.2 % (0.0-0.5); Lymphocytes Absolute Auto 2.5 10^3/uL (1.2-3.8); Lymphocytes Percent Auto 42.1 % (20.5-60.0); Mean Corpuscular HGB Conc 34.9 g/dL (29.9-35.2); Mean Corpuscular Hemoglobin 32.4 pg (25.9-34.0); Mean Corpuscular Volume 92.9 fL (80.0-94.0); Mean Platelet Volume 9.8 fL (9.5-13.5); Monocytes Absolute Auto 0.6 10^3/uL (0.3-0.8); Monocytes Percent Auto 9.4 % (1.7-12.0); Neutrophils Absolute Auto 2.6 10^3/uL (1.4-6.5); Neutrophils Percent Auto 44.7 % (43.0-75.0); Platelet Count 279 10^3/uL (150-450); Red Blood Count 4.94 10^6/uL (4.70-6.10); Red Cell Distribution Width 12.9 % (11.0-15.0); White Blood Count 5.9 10^3/uL (4.0-11.0)
[2024-04-30 08:43] LABS: Estimated Average Glucose 85 mg/dL; Glycohemoglobin A1C 4.6 % (4.5-6.2)
[2024-04-30 09:46] LABS: Alanine Aminotransferase 60 U/L (16-63); Albumin Globulin Ratio 1.4; Albumin Level 3.9 g/dL (3.4-5.0); Alkaline Phosphatase 58 U/L (46-116); Anion Gap 13.5; Aspartate Amino Transferase 25 U/L (15-37); BUN Creatinine Ratio 15.3; Bilirubin Total 0.4 mg/dL (0.2-1.0); Calcium 8.7 mg/dL (8.5-10.1); Chloride 103 mmol/L (98-107); Chol HDL Ratio 3.6; Cholesterol 144 mg/dL (<=200); Estimated GFR (African America >60 (>=60); Estimated GFR (Non-African Ame >60 (>=60); Free T3 3.09 pg/mL (2.18-3.98); Globulin 2.8 g/dL; Glucose 89 mg/dL (74-106); HDL Cholesterol 40 mg/dL (40-60); Potassium 4.5 mmol/L (3.5-5.1); Sodium 139 mmol/L (136-145); Total Protein 6.7 g/dL (6.4-8.2); Triglycerides 186 mg/dL (<=150); VLDL CHOLESTEROL 37.2 mg/dL
[2024-05-01 08:12] LABS: Insulin 8.5 uIU/mL (2.6-24.9)
== END 2024-04-30 07:34 | disposition home or self-care (01) ==
LOC: LAB 07:33
PROVIDERS: PCP Family Medicine; Visit Provider Family Medicine
DX: Z00.00 Encounter for general adult medical examination without abnormal findings (principal)
CPT/HCPCS: 36415; 80053; 80061; 83036; 83525; 84436; 84443; 84481; 85025

== ENCOUNTER 2024-08-31 10:58 | Outpatient (OUT) | payer BC, SELFPAY ==
--- NOTE | 2024-08-31 11:03 | US_ITS ---
[address] [address] Patient Name: JUANCARLOS JAMES MRN: [id number] date: 1990 Sex: M Assigned Patient Location: US Current Patient Location: US Accession/Order Number: [id number] Exam Date: 08/31/2024 11:15 Report Date: 08/31/2024 13:55 At the request of: ZENIA CUELLO Procedure: US scrotum EXAMINATION: US scrotum HISTORY: Epididymal cyst COMPARISON: No relevant comparison available. TECHNIQUE: High-resolution sonographic imaging of the scrotum and contents was performed. FINDINGS: The right testicle is normal in size, contour and homogeneous echotexture measuring 4.3 x 2.3 x 2.6 cm. Normal color Doppler flow. The right epididymis is normal. The right hydrocele, no right varicocele. The left testicle is normal in size, contour and homogeneous echotexture measuring 4.3 x 2.1 x 2.8 cm. Normal color Doppler flow. The left epididymis is normal. 2 areas of anechoic echogenicity measuring up to 4 mm, epididymal cyst favored No left hydrocele. Small left varicocele US/US scrotum IMPRESSION: 2 small left epididymal cysts measuring up to 4 mm Small left varicocele Electronically authenticated by: CHESTER SMITH Date: 08/31/2024 13:55
--- OUTSIDE RECORDS SUMMARY | 2024-08-31 11:18 | XMS_ITS | CCD ---
Author Organization [facility] Care Team Providers Care Attorney General Name Role Phone DAVIS ., DR PATEL Admitting Unavailable HOY ., DR PATEL Attending Unavailable HOY ., DR PATEL Primary Care Unavailable HOY ., DR PATEL Consulting Unavailable BURNS, DR JOSEPH Admitting Unavailable BURNS, DR JOSEPH Attending Unavailable HOY ., DR PATEL Primary Care Unavailable BURNS, DR JOSEPH Consulting Unavailable HOY ., DR PATEL Admitting Unavailable HOY ., DR PATEL Attending Unavailable HOY ., DR PATEL Primary Care Unavailable HOY ., DR PATEL Consulting Unavailable MD Amanda Kline Primary Care Provider [phone] MD Tani Rivero Attending Provider Amanda Kline Primary Care Unavailable Tani Rivero Attending Unavailable Tani Rivero Admitting Unavailable VERONICA HOLLIS Referring Unavailable VERONICA HOLLIS Attending Unavailable BEATRIZ MATOS Referring Unavailable VERONICA HOLLIS Attending Unavailable MELONY MCMANUS Attending Unavailable Elizabeth Gross Attending Unavailable Elizabeth Gross Attending Unavailable Amanda Kline Primary Care Physician [phone] Amanda Kline MD Primary Care Provider [phone] Allergies Allergy Classification Reported Allergen(s) Allergy Type Date of Onset Reaction(s) Facility (2 sources) Cefadroxil; Translations: [Duricef] Drug Allergy 06-11-2015 [facility] Repository (4 sources) Cefadroxil; Translations: [cefadroxil] Drug Allergy 02-16-2023 ear swelling [facility] (3 sources) apremilast Drug Allergy 05-02-2020 [facility] (3 sources) cefdinir Drug Allergy 02-05-2023 Unknown [facility] Medications Current Medications Medication Drug Class(es) Dates Sig (Normalized) Sig (Original) atomoxetine 60 mg oral capsule (3 sources) Norepinephrine Reuptake Inhibitor Strattera 60 MG capsule 1 (one) time each day at the same time Active baclofen 20 mg oral tablet (3 sources) gamma-Aminobutyric Acid-ergic Agonist take 2 tablets by mouth at bedtime baclofen (Lioresal) 20 MG tablet 2 tablets with food or milk Orally at bedtime Active 24 hr guanFACINE 4 mg extended release oral tablet (1 source) Central alpha-2 Adrenergic Agonist Start: 07-25-2024 guanfacine 4 mg oral tablet, extended release 4 mg = 1 tab(s) Start Date: 07/25/24 Status: Ordered 1 ml guselkumab 100 mg/ml auto-injector (8 sources) Interleukin-23 Antagonist Start: 07-25-2024 Tremfya One-Press 100 mg/mL subcutaneous solution IntraMuscular, Refills(s) 0 Start Date: 07/25/24 Status: Ordered Start: 07-25-2024 Tremfya q4wk S tart Date: 07/25/24 Status: Ordered Start: 05-07-2024 End: 06-03-2025 Tremfya 100 MG/ML injection Indications: Plaque Psoriasis Inject 1 mL (100 mg) under the skin every 8 (eight) weeks 1 mL 6 05/07/2024 06/03/2025 Active Start: 05-07-2024 Tremfya 100 MG /ML injection Indications: Plaque Psoriasis Inject 100 mg (contents of one pen) under the skin at week 0 and week 4. 2 pen 05/07/2024 Active oxaprozin 600 mg oral tablet (3 sources) Nonsteroidal Anti-inflammatory Drug oxaprozin (Daypro ) 600 MG tablet Orally Active pantoprazole 40 mg extended release oral tablet (4 sources) Proton Pump Inhibitor Start: 05-07-20 take 1 tablet by mouth once daily pantoprazole 40 mg Oral EC Tab 40 mg = 1 tab(s), Oral, Daily Start Date: 05/07/19 Status: Ordered pantoprazole (Pr otoNix) 40 MG EC tablet 1 (one) time each day at the same time. Active 1 ml secukinumab 150 mg/ml auto-injector (3 sources) Interleukin-17A Antagonist Start: 06-13-2020 secukinumab (Cosentyx Sensoready Pen) 150 MG/ML self-injector pen Inject 2 PF Pens Subcutaneous every 28 days for 28 days 06/13/2020 Active sulfamethoxazole 800 mg / trimethoprim 160 mg oral tablet (1 source) Dihydrofolate Reductase Inhibitor Antibacterial, Sulfonamide Antimicrobial Start: 07-25-2024 End: 08-22-2024 Bactrim D.S. 800 mg-160 mg Tab 1 tab(s), Oral, BID for 28 day(s), 56 tab(s), Refill(s) 0, [facility]/pharmacy #[id number], 189, cm, 07/25/24 9:04:00 EST, Height/Length Dosing, 113.5, kg, 07/25/24 9:04:00 EST, Weight Dosing Start Date: 07/25/24 Stop Date: 08/22/24 Status: Ordered terbinafine 250 mg oral tablet (3 sources) Allylamine Antifungal terbinafin e (LamISIL) 250 MG tablet 1 (one) time each day at the same time. Active Problems Active Problems Problem Classification Problem Date Documented Date Episodic/Chronic Acute bronchitis (1 source) Acute bronchitis, unspecified; Translations: [ACUTE BRONCHITIS UNSPECIFIED] Onset: 09-15-2022 Episodic Attention-deficit, conduct, and disruptive behavior disorders (1 source) Attention deficit hyperactivity disorder 07-25-2024 Chronic Contraceptive and procreative management (1 source) Encounter for fertility testing; Translations: [Encounter for fertility testing] Onset: 03-21-2024 Episodic Inflammatory conditions of male genital organs (2 sources) Prostatitis; Translations: [Inflammatory disease of prostate, unspecified] Onset: 07-25-2024 Episodic Other aftercare (2 sources) Taking high risk medication; Translations: [Other half-way (current) drug therapy] 08-23-2024 Episodic Other inflammatory condition of skin (1 source) Psoriasis 07-25-2024 Chronic Other inflammatory condition of skin (5 sources) Psoriasis vulgaris; Translations: [Psoriasis vulgaris] Onset: 02-05-2023 02-05-2023 Chronic Other male genital disorders (2 sources) Male infertility; Translations: [Male infertility, unspecified] Onset: 07-25-2024 Episodic Other male genital disorders (2 sources) Cyst of epididymis; Translations: [Cyst of epididymis] Onset: 07-25-2024 Episodic Other male genital disorders (1 source) Disorder of male genital organ 07-25-2024 Episodic Other nutritional; endocrine; and metabolic disorders (1 source) Body mass index 30+ - obesity 05-07-2019 Chronic Unclassified (3 sources) CONTACT W/AND (SUSP) EXPOS COVID-19; Translations: [CONTACT W/AND (SUSP) EXPOS COVID-19] Onset: 09-15-2022 Past or Other Problems Problem Classification Problem Date Documented Da te Episodic/Chronic Other aftercare (4 sources) Other half-way (current) drug therapy; Translations: [OTH [facility] CURRENT DRUG THERAPY] Onset: 02-16-2022 Episodic Unclassified (1 source) CONTACT W/AND (SUSP) EXPOS COVID-19; Translations: [CONTACT W/AND (SUSP) EXPOS COVID-19] Onset: 09-08-2022 Results Test Name Value Interpretation Reference Range Facility Ambulatory Visit Summaryon 1 09-24-2023 Ambulatory Visit Summary Ambulatory Visit Summary JUANCARLOS JAMES :1990 Visit Date:07/25/2024 Ambulatory Visit Instructions Your Diagnosis Infertility male Prostatitis Epididymal cyst Tests Performed US Scrotum (Contents) -- Results Pending -- Please visit your patient portal for your results or contact your primary care physician. Your Care Team Attending Physician - Elizabeth Gross MD Primary Care Physician - Amanda Kline MD This Is Your Medications List sulfamethoxazole-trim ethoprim (Bactrim D.S. 800 mg-160 mg Tab) Contact prescribing physician if questions or concerns guanfacine (guanfacine 4 mg oral tablet, extended release) guselkumab (Tremfya One-Press 100 mg/mL subcutaneous solution) guselkumab (Tremfya) pantoprazole (pantoprazole 40 mg Oral EC Tab) Discharge Vitals Height 189 cm Height 74 in Weight 113.5 kg Weight 249.7 lb BMI 31.77 What to do next Scheduled Follow-Up Appointments Tuesday 8:45 AM EST With: Elizabeth Gross MD Where: [facility] [address] [place] [address]- You Need to Schedule the Following Appointments Follow Up with Lue MD, CARL Marin, URO When: Where: Medications What How Much When Instructions New sulfamethoxazole-trim ethoprim (Bactrim D.S. 800 mg-160 mg Tab) 1 Tablets By Mouth 2 times a day Duration: 28 Days Pickup at [facility]/pharmacy #[id number] Unchanged guanfacine (guanfacine 4 mg oral tablet, extended release) 1 Tablets Contact prescribing physician if questions or concerns Unchanged guselkumab (Tremfya One-Press 100 mg/ mL subcutaneous solution) Intramuscular Contact prescribing physician if questions or concerns Unchanged guselkumab (Tremfya) Every 4 weeks Contact prescribing physician if questions or concerns Unchanged pantoprazole (pantoprazole 40 mg Oral EC Tab) 1 Tablets By Mouth Every day Contact prescribing physician if questions or concerns Pharmacy Information [facility]/pharmacy #[id number]: [address], [place] [id number] [phone] Medications and Immunizations Administered Given SARSCoV2 mRNA(jlfebbcss-shnm-i ucros) vac, Allergies Duricef (ear swelling) Problems Ongoing - Any problem that you are currently receiving treatment for. ADHD BMI 35.0-35.9,adult Epididymal cyst Epididymal thickening Infertility male Prostatitis Psoriasis Patient Survey You may receive a survey via text or e-mail asking about your office visit. Please share your experience with us by completing your survey. We appreciate your feedback and thank you for choosing us for your care. Education Materials Prostatitis Prostatitis is swelling or inflammation of the prostate gland, also called the prostate. This gland is about 1.5 inches wide and 1 inch high, and it is involved in making semen. The prostate is located below a man's bladder, in front of the rectum. There are four types of prostatitis: ??? Chronic prostatitis (CP), also called chronic pelvic pain syndrome (CPPS). This is the most common type of prostatitis. It is associated with increased muscle tone in the area between the hip bones (pelvic area), around the prostate. This type is also known as a pelvic floor disorder. ??? Chronic bacterial prostatitis. This type usually results from an acute bacterial infection in the prostate gland that keeps coming back or has not been treated properly. The symptoms are less severe than those caused by acute bacterial prostatitis, which lasts a shorter time. ??? Asymptomatic inflammatory prostatitis. This type does not have symptoms and does not need treatment. This is diagnosed when tests are done for other disorders of the urinary tract or reproductive tract. ??? Acute bacterial prostatitis. This type starts quickly and results from an acute bacterial infection in the prostate gland. It is usually associated with a bladder infection, high fever, and chills. This is the least common type of prostatitis. What are the causes? Bacterial prostatitis is caused by an infection from bacteria. Chronic nonbacterial prostatitis may be caused by: ??? Factors related to the nervous system. This system includes thebrain, spinal cord, and nerves. ??? An autoimmune response. This happens when the body's disease-fighting system attacks healthy tissue in the body by mistake. ??? Psychological factors. These have to do with how the mind works. The causes of the other types of prostatitis are usually not known. What are the signs or symptoms? Symptoms of this condition depend on the type of prostatitis you have. Acute bacterial prostatitis Symptoms may include: ??? Pain or burning during urination. ??? Frequent and sudden urges to urinate. ??? Trouble starting to urinate. ??? Fever. ??? Chills. ??? Pain in your muscles or joints, lower back, or lower abdomen. Other types of prostatitis Symptoms (more content not included)... Normal [facility] Urology Office/Clinic Noteon 07-25-2024 Urology Office/Clinic Note Urology Office/Clinic Note Chief Complaint Infertility HPI Staff 33 year old male New Pt. here for infertility. Pt. states he and his have been trying to conceive for a year. Semen analysis 04/17/24 [facility] - abnormal viscosity and liquefaction [ordered by Dr. Tani Rivero] Dysuria: no Incomplete bladder emptying: no Hematuria: no Frequency: Pt. states depends on how much he is drinking Urgency: Pt. states occasionally Nocturia: 1-2x's Stream: good stream Post void dripping: no Wearing pads/ Depends: no Urge incontinence: Pt. states if he hold his urine to long he will have some leaking Stress incontinence: no Incontinence without Sensory Awareness: no Abdominal pain: no Flank pain: no History of Present Illness Tests reviewed: reviewed UA, semen analysis, external records. I have reviewed the previous health record information and history for this patient from external provider. I have reviewed and verified the staff HPI to be accurate for this encounter. There have been no associated fever, chills, flank pain, or blood in the urine. Denies any urinary infections since last encounter. Review of Systems PHQ Score Initial Depression Screen Score: 2 SCORE ROS - Provider Constitutional: denies weight loss, denies hot flashes. Eyes: denies eye problems. Gastrointestinal: denies nausea, denies vomiting. Cardiovascular: denies chest pain or angina. Integumentary: no dryness Musculoskeletal: denies musculoskeletal symptoms. ENMT: denies otolaryngeal symptoms. Respiratory: no shortness of breath. Heme/Lymph: denies easy bleeding tendency, denies easy bruising tendency. Psychiatric: no confusion, no anxiety. Genitourinary: See HPI. Physical Exam Vitals & Measurements HT: 74 in HT: 189 cm WT: 113.5 kg WT: 249.7 lb BMI: 31.77 General Appearance: alert, no distress, well nourished, well developed male. Head: normocephalic . Eyes: normal orbit and globe. ENMT: normal examination of external ears. Abdomen: soft, non distended, no tenderness Genitourinary: BL descended testes, inferior epididymis firmer with palpation BL, nontender, no varicoceles, no hernias. Penis: normal shaft, normal glans. Prostate: flat, smooth, L lobe/mid boggy and tender to palpation, right non tender Skin: warm, dry, no bruising. Psychiatric: cooperative, affect appropriate for age, normal judgement, euthymic mood. Assessment/Plan 33 yo overall healthy male new to our office for infertility. 1. Infertility male (N46.9: Male infertility, unspecified) Pt did not fill out RHYS, left it blank- pt denies ED Semen analysis 04/17/24 [facility] - abnormal viscosity and liquefaction [ordered by Dr. Tani Rivero] Pt shares he had to wait when he got to the hospital, possible time lapse. Denies family hx of infertility. Denies undescended testes or testicular atrophy. Never a smoker. Does not smoke marijuana. Denies testicular or scrotal surgeries. Denies change in ejaculation or painful ejaculation. Pt and his have been trying to conceive for a year. Pt's follows with Dr. Tani Rivero, workup has been normal per pt. Pt states his has had a miscarriage. Pt states him and his have sexual intercourse a few times a month. Pt states his has been tracking ovulation. Recommended having intercourse every 2-3 days during ovulation period. Denies sexual function issues. Rides a motorcycle, denies perineal pain when he rides his bike. Discussed external SA findings, overall normal except viscosity/liquefactio n, which may be secondary to dehydration or infection. WBC wnl however exam and urinary sx concerning for prostatitis Recommended repeating SA, hydrate a few days prior. Perform after abx for #2. Advised pt to call the hospital prior to dropping off sample to avoid time lapse. Will also check testosterone and FSH level. -Repeat SA after he completes 4 week ATB course -Check testosterone AM and FSH level -Use water based lubricants -Timed intercourse no more than q2d Follow up within 6-8 weeks. 2. Prostatitis (N41.9: Inflammatory disease of prostate, unspecified) IPSS 7 UA today shows trace-intact blood. Pt states he had an infection >10 years ago. Pt states he thought he had an STI but it wasn't. Pt was treated with ATB course. Pt feels that his overactive symptoms have worsened recently, past few months TEJAS: ~flat, smooth, L mid boggy. 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 -Begin Bactrim DS BID x 4 weeks -Increase water intake -Ibuprofen for inflammation 3. Epididymal cyst (N50.3: Cyst of epididymis) Physical exam ~inferior epididymis firmer with palpation, nontender. -Will schedule scrotal US @ [facility] to confirm no other abnormalities. Follow-up With When Contact Information Elizabeth Gross MD, URL, [facility] Additional Instructions: 6-8 weeks with SA, testosterone/FSH, scrotal US Patient Education Prostatitis Male Infertility I, M (more content not included)... Normal [facility] Comment on above: Result Comment: Elec tronically Signed By: Elizabeth Gross MD\.br\Date and Time Signed: 07/25/24 10:09 EST\.br\Electronically Co-Signed By: Lorraine Bowie\.br\Date and Time Co-Signed: 07/25/24 09:36 EST\.br\Electronically Co-Signed By: Lorraine Bowie\.br\Date and Time Co-Signed: 07/25/24 09:37 EST\.br\Electronically Co-Signed By: Lorraine Bowie\.br\Date and Time Co-Signed: 07/25/24 09:56 EST No Panel InformationOrdered By: RHONDA Rivero on 03-21-2024 Semen Analysis Comment . [facility] Comment on above: USED QUICKCHECK FOR LIQUIFICATION Semen Round Cell Concentration Moderate [facility] Semen WBC Concentration <1.0 M/mL <0.9 [facility] Sperm % Non-Motile 36 % [facility] Sperm Motility Total 64.0 % >40 [facility] Qualitative semen viscosityO rdered By: RHONDA Rivero on 03-21-2024 Viscosity Ql (Lelia) Abnormal Abnormal Normal [facility] Semen Analysis, Fertilityon 03-21-2024 Debris/Round Cells Moderate Normal [facility] Comment on above: Order Comment: Metho d of Collection:: Masturbation Has the patient had a vasectomy?: N Type of Specimen Container:: Sterile Container Abstinence Period:: 5 DAYS Kept at body temperature?: Y Any Collection or Transport Problems?: NONE Performed By: #### S EMCOMP #### [facility] [address] [place] [address] [place] Immotile Sperm 36 % Normal [facility] Comment on above: Order Comment: Metho d of Collection:: Masturbation Has the patient had a vasectomy?: N Type of Specimen Container:: Sterile Container Abstinence Period:: 5 DAYS Kept at body temperature?: Y Any Collection or Transport Problems?: NONE Performed By: #### S EMCOMP #### [facility] [address] [place] [id number] [place] Non-Progression Sperm Motili 7 % Normal [facility] Comment on above: Order Comment: Metho d of Collection:: Masturbation Has the patient had a vasectomy?: N Type of Specimen Container:: Sterile Container Abstinence Period:: 5 DAYS Kept at body temperature?: Y Any Collection or Transport Problems?: NONE Performed By: #### S EMCOMP #### [address] Normal Sperm Morphology 14.0 % Normal >=4.0 [facility] Comment on above: Order Comment: Metho d of Collection:: Masturbation Has the patient had a vasectomy?: N Type of Specimen Container:: Sterile Container Abstinence Period:: 5 DAYS Kept at body temperature?: Y Any Collection or Transport Problems?: NONE Performed By: #### S EMCOMP #### [address] Rapid Progression Sperm Motili 57 % Normal [facility] Comment on above: Order Comment: Metho d of Collection:: Masturbation Has the patient had a vasectomy?: N Type of Specimen Container:: Sterile Container Abstinence Period:: 5 DAYS Kept at body temperature?: Y Any Collection or Transport Problems?: NONE Performed By: #### S EMCOMP #### [address] Semen Comment . Normal [facility] Comment on above: Order Comment: Metho d of Collection:: Masturbation Has the patient had a vasectomy?: N Type of Specimen Container:: Sterile Container Abstinence Period:: 5 DAYS Kept at body temperature?: Y Any Collection or Transport Problems?: NONE Result Comment: USED QUICKCHECK FOR LIQUIFICATION PERFORMED BY: [place] [address] PATHOLOGIST TRANSMISSION LINE ENGINEER IGLESIA VARGAS M.D. Performed By: #### S EMCOMP #### [address] Semen Liquefaction Abnormal Critically abnormal <=60 min [facility] Comment on above: Order Comment: Metho d of Collection:: Masturbation Has the patient had a vasectomy?: N Type of Specimen Container:: Sterile Container Abstinence Period:: 5 DAYS Kept at body temperature?: Y Any Collection or Transport Problems?: NONE Performed By: #### S EMCOMP #### [address] Semen Viscosity Abnormal Critically abnormal Normal [facility] Comment on above: Order Comment: Metho d of Collection:: Masturbation Has the patient had a vasectomy?: N Type of Specimen Container:: Sterile Container Abstinence Period:: 5 DAYS Kept at body temperature?: Y Any Collection or Transport Problems?: NONE Performed By: #### S EMCOMP #### [facility] [address] Semen Volume 2.5 mL Normal >=1.5 [facility] Comment on above: Order Comment: Metho d of Collection:: Masturbation Has the patient had a vasectomy?: N Type of Specimen Container:: Sterile Container Abstinence Period:: 5 DAYS Kept at body temperature?: Y Any Collection or Transport Problems?: NONE Performed By: #### S EMCOMP #### [address] Sperm Concentration 135.4 Normal >=15 [facility] Comment on above: Order Comment: Metho d of Collection:: Masturbation Has the patient had a vasectomy?: N Type of Specimen Container:: Sterile Container Abstinence Period:: 5 DAYS Kept at body temperature?: Y Any Collection or Transport Problems?: NONE Performed By: #### S EMCOMP #### [address] Total Motility ([place]+CHEF PASSENGER VESSEL) 64.0 % Normal >=40 ([place]+CHEF PASSENGER VESSEL) [facility] Comment on above: Order Comment: Metho d of Collection:: Masturbation Has the patient had a vasectomy?: N Type of Specimen Container:: Sterile Container Abstinence Period:: 5 DAYS Kept at body temperature?: Y Any Collection or Transport Problems?: NONE Performed By: #### S EMCOMP #### [facility] [address] [place] [address] [place] WBC Concent, Semen <1.0 Normal <1.0 [facility] Comment on above: Order Comment: Metho d of Collection:: Masturbation Has the patient had a vasectomy?: N Type of Specimen Container:: Sterile Container Abstinence Period:: 5 DAYS Kept at body temperature?: Y Any Collection or Transport Problems?: NONE Performed By: #### S EMCOMP #### [facility] [address] [place] [address] Semen Analysis, FertilityOrd ered By: RHONDA Rivero on 03-21-2024 Semen Appearance Normal Normal Normal [facility] Comment on above: Order Comment: Metho d of Collection:: Masturbation Has the patient had a vasectomy?: N Type of Specimen Container:: Sterile Container Abstinence Period:: 5 DAYS Kept at body temperature?: Y Any Collection or Transport Problems?: NONE Performed By: #### S EMCOMP #### [facility] [address] [place] [address] Semen pH 8.0 Normal >=7.2 [facility] Comment on above: Order Comment: Metho d of Collection:: Masturbation Has the patient had a vasectomy?: N Type of Specimen Container:: Sterile Container Abstinence Period:: 5 DAYS Kept at body temperature?: Y Any Collection or Transport Problems?: NONE Performed By: #### S EMCOMP #### [facility] [address] [place] [address] Semen liquefaction time merle urementOrdered By: RHONDA Rivero on 03-21-2024 Liquefaction (Lelia) [Time] Abnormal Abnormal <=60 min [facility] Semen volumeOrdered By: DC Rivero on 03-21-2024 Specimen volume (Lelia) 2.5 mL >1.5 [facility] Sperm countOrdered By: JACOBO Rivero on 03-21-2024 Spermatozoa (Lelia) [#/Vol] 135.4 M/mL >15 [facility] Sperm morphologyOrdered By: RHONDA Rivero on 03-21-2024 Spermatozoa Nom (Lelia) 14.0 % >4.0 [facility] INSULINon 12-04-2022 Insulin 3.0 uIU/mL Normal 2.6-24.9 [facility] Comment on above: Performed By: #### I NSULIN #### [facility] [address] [address] [address] Penny Arroyo CBC AUTO DIFFon 12-03-2022 BASO # 0.0 103/ul Normal 0.0-0.1 [facility] Comment on above: Performed By: #### C BC #### [facility] [address] [place] [address] Dr. Penny Arroyo Basophils/100 WBC (Bld) 0.3 % Normal 0.2-2.0 [facility] Comment on above: Performed By: #### C BC #### [facility] [address] [place] [address] Dr. Penny Arroyo EO # 0.2 103/ul Normal 0.0-0.7 [facility] Comment on above: Performed By: #### C BC #### [facility] [address] [place] [address] Dr. Penny Arroyo Eosinophils/100 WBC (Bld) 2.3 % Normal 0.9-7.0 [facility] Comment on above: Performed By: #### C BC #### [facility] [address] [place] [address] Dr. Penny Arroyo Erythrocyte distribution width (RBC) [Ratio] 12.4 % Normal 11.0-15.0 [facility] Comment on above: Performed By: #### C BC #### [facility] [address] [place] [address] Dr. Penny Arroyo Hematocrit (Bld) [Volume fraction] 43.5 % Normal 42.0-54.0 [facility] Comment on above: Performed By: #### C BC #### [facility] [address] [place] [address] Dr. Penny Arroyo Hemoglobin (Bld) [Mass/Vol] 15.7 g/dL Normal 14.0-18.0 [facility] Comment on above: Performed By: #### C BC #### [facility] [address] [place] [address] Dr. Penny Arroyo IG # 0.02 10e3/ul Normal 0.00-0.03 [facility] Comment on above: Performed By: #### C BC #### [facility] [address] [place] [address] Dr. Penny Arroyo IG % 0.3 % Normal 0.0-0.5 [facility] Comment on above: Performed By: #### C BC #### [facility] [address] [place] [address] Dr. Penny Arroyo LYMPH # 2.9 103/ul Normal 1.2-3.8 [facility] Comment on above: Performed By: #### C BC #### [facility] [address] [place] [address] Dr. Penny Arroyo Lymphocytes/100 WBC (Bld) 41.8 % Normal 20.5-60.0 [facility] Comment on above: Performed By: #### C BC #### [facility] [address] [place] [address] Dr. Penny Arroyo MANUAL DIFF REQ NO Normal [facility] Comment on above: Performed By: #### C BC #### [facility] [address] [place] [address] Dr. Penny Arroyo MCH (RBC) [Entitic mass] 32.2 pg Normal 25.9-34.0 [facility] Comment on above: Performed By: #### C BC #### [facility] [address] [place] [address] Dr. Penny Arroyo MCHC (RBC) [Mass/Vol] 36.1 g/dL Critically high 29.9-35.2 [facility] Comment on above: Performed By: #### C BC #### [facility] [address] [place] [address] Dr. Penny Arroyo MCV (RBC) [Entitic vol] 89.3 fL Normal 80.0-94.0 [facility] Comment on above: Performed By: #### C BC #### [facility] [address] [place] [address] Dr. Penny Arroyo MONO # 0.6 103/ul Normal 0.3-0.8 [facility] Comment on above: Performed By: #### C BC #### [facility] [address] [place] [address] Dr. Penny Arroyo Monocytes/100 WBC (Bld) 9.1 % Normal 1.7-12.0 [facility] Comment on above: Performed By: #### C BC #### [facility] [address] [place] [address] Dr. Penny Arroyo NEUT # 3.2 103/ul Normal 1.4-6.5 [facility] Comment on above: Performed By: #### C BC #### [facility] [address] [place] [address] Dr. Penny Arroyo Neutrophils/100 WBC (Bld) 46.2 % Normal 43.0-75.0 [facility] Comment on above: Performed By: #### C BC #### [facility] [address] [place] [address] Dr. Penny Arroyo Platelet mean volume (Bld) [Entitic vol] 9.7 fL Normal 9.5-13.5 [facility] Comment on above: Performed By: #### C BC #### [facility] [address] [place] [address] Dr. Penny Arroyo PLT 257 103/ul Normal 150-450 [facility] Comment on above: Performed By: #### C BC #### [facility] [address] [place] [address] Dr. Penny Arroyo RBC 4.87 106/ul Normal 4.70-6.10 [facility] Comment on above: Performed By: #### C BC #### [facility] [address] [place] [address] Dr. Penny Arroyo WBC 7.0 103/ul Normal 4.0-11.0 [facility] Comment on above: Performed By: #### C BC #### [facility] [address] [place] [address] Dr. Penny Arroyo FREE THYROXINE INDEX T7on FTI 3.17 Normal 1.30-4.50 [facility] Comment on above: Performed By: #### T 7, CMP, TSH, LIPID #### [facility] [address] [place] [address] Dr. Penny Arroyo T3U 36.0 % Normal 33.0-40.0 [facility] Comment on above: Performed By: #### T 7, CMP, TSH, LIPID #### [facility] [address] [address] [address] Penny Arroyo T4 [Mass/Vol] 8.80 ug/dL Normal 4.50-12.10 [facility] Comment on above: Performed By: #### T 7, CMP, TSH, LIPID #### [facility] [id number] Penny Arroyo GLYCOHEMOGLOBIN A1Con 2022 ADA RECOMMENDATION SEE BELOW Normal [facility] Comment on above: Result Comment: ADA RECOMMENDED LIMIT 4.0 - 6.0 ADA THERAPEUTIC TARGET < 7.0 ACTION SUGGESTED > 7.0 Performed By: #### A 1C #### [facility] [address] [address] [address] Penny Arroyo Glucose [Mass/Vol] 88 mg/dL Normal [facility] Comment on above: Performed By: #### A 1C #### [facility] [address] [address] [address] Penny Arroyo HbA1c (Bld) [Mass fraction] 4.7 % Normal 4.5-6.2 [facility] Comment on above: Performed By: #### A 1C #### [facility] [address] [address] [address] Penny Arroyo LIPID PROFILEon 12-03-2022 CHOL-HDL RATIO NORM SEE BELOW Normal [facility] Comment on above: Result Comment: 3.3 - 4.4 LOW RISK 4.4 - 7.1 AVERAGE RISK 7.1 - 11.0 MODERATE RISK >11.0 HIGH RISK Performed By: #### T 7, CMP, TSH, LIPID #### [facility] [address] [address] [address] Penny Arroyo Cholesterol [Mass/Vol] 148 mg/dL Normal <=200 [facility] Comment on above: Performed By: #### T 7, CMP, TSH, LIPID #### [facility] [address] [address] [address] Penny Arroyo Cholesterol in HDL [Mass/Vol] 37 mg/dL Critically low 40-60 [facility] Comment on above: Performed By: #### T 7, CMP, TSH, LIPID #### [facility] [address] [address] [address] Penny Arroyo Cholesterol in LDL [Mass/Vol] 67.6 mg/dL Normal [facility] Comment on above: Performed By: #### T 7, CMP, TSH, LIPID #### [facility] [address] [address] [address] Penny Arroyo Cholesterol.total/Chol esterol in HDL [Mass ratio] 4.0 {ratio} Normal [facility] Comment on above: Performed By: #### T 7, CMP, TSH, LIPID #### [facility] [address] [address] [address] Penny Arroyo HDL NORMAL > or = 60 mg/dl - LO W CARDIOVASCULAR RISK <40 mg/dl - HIGH CARDIOVASCULAR RISK Normal [facility] Comment on above: Performed By: #### T 7, CMP, TSH, LIPID #### [facility] [address] [address] [address] Penny Arroyo LDL CALC NORMAL SEE BELOW Normal [facility] Comment on above: Result Comment: <100 mg/dl OPTIMAL 100 - 129 mg/dl NEAR OR ABOVE OPTIMAL 130 - 159 mg/dl BORDERLINE HIGH 160 - 189 mg/dl HIGH >190 mg/dl VERY HIGH Performed By: #### T 7, CMP, TSH, LIPID #### [facility] [address] [address] [address] Penny Arroyo Triglyceride [Mass/Vol] 217 mg/dL Critically high <=150 [facility] Comment on above: Performed By: #### T 7, CMP, TSH, LIPID #### [facility] [address] [address] [address] Penny Arroyo VLDL CALC 43.4 mg/dL Normal [facility] Comment on above: Performed By: #### T 7, CMP, TSH, LIPID #### [facility] [address] [address] [address] Penny Arroyo PROF 14(COMP METB)on 023 Albumin [Mass/Vol] 4.2 g/dL Normal 3.4-5.0 [facility] Comment on above: Performed By: #### T 7, CMP, TSH, LIPID #### [facility] [address] [place] [address] Dr. Penny Arroyo Albumin/Globulin [Mass ratio] 1.4 {ratio} Normal [facility] Comment on above: Performed By: #### T 7, CMP, TSH, LIPID #### [facility] [address] [place] [address] Dr. Penny Arroyo ALP [Catalytic activity/Vol] 65 U/L Normal 46-116 [facility] Comment on above: Performed By: #### T 7, CMP, TSH, LIPID #### [facility] [address] [place] [address] Dr. Penny Arroyo ALT [Catalytic activity/Vol] 28 U/L Normal 16-63 [facility] Comment on above: Performed By: #### T 7, CMP, TSH, LIPID #### [facility] [address] [place] [address] Dr. Penny Arroyo Anion gap [Moles/Vol] 14.2 mmol/L Normal [facility] Comment on above: Performed By: #### T 7, CMP, TSH, LIPID #### [facility] [address] [place] [address] Dr. Penny Arroyo AST [Catalytic activity/Vol] 20 U/L Normal 15-37 [facility] Comment on above: Performed By: #### T 7, CMP, TSH, LIPID #### [facility] [address] [place] [address] Dr. Penny Arroyo Bilirubin [Mass/Vol] 0.7 mg/dL Normal 0.2-1.0 [facility] Comment on above: Performed By: #### T 7, CMP, TSH, LIPID #### [facility] [address] [place] [address] Dr. Penny Arroyo Calcium [Mass/Vol] 9.0 mg/dL Normal 8.5-10.1 [facility] Comment on above: Performed By: #### T 7, CMP, TSH, LIPID #### [facility] [address] [address] [address] Penny Arroyo Chloride [Moles/Vol] 103 mmol/L Normal 98-107 [facility] Comment on above: Performed By: #### T 7, CMP, TSH, LIPID #### [facility] [address] [address] [address] Penny Arroyo CO2 [Moles/Vol] 26.7 mmol/L Normal 21.0-32.0 [facility] Comment on above: Performed By: #### T 7, CMP, TSH, LIPID #### [facility] [address] [address] [address] Penny Arroyo Creatinine [Mass/Vol] 0.83 mg/dL Normal 0.70-1.30 [facility] Comment on above: Performed By: #### T 7, CMP, TSH, LIPID #### [facility] [address] [place] [address] Dr. Penny Arroyo EGFR-AF MACEDONIAN >60 Normal >=60 [facility] Comment on above: Performed By: #### T 7, CMP, TSH, LIPID #### [facility] [address] [place] [address] Dr. Penny Arroyo EGFR-NON AF MACEDONIAN >60 Normal >=60 [facility] Comment on above: Performed By: #### T 7, CMP, TSH, LIPID #### [facility] [address] [place] [address] Dr. Penny Arroyo Globulin (S) [Mass/Vol] 3.0 g/dL Normal [facility] Comment on above: Performed By: #### T 7, CMP, TSH, LIPID #### [facility] [address] [address] [address] Penny Arroyo Glucose [Mass/Vol] 89 mg/dL Normal 74-106 [facility] Comment on above: Performed By: #### T 7, CMP, TSH, LIPID #### [facility] [address] [place] [address] Dr. Penny Arroyo Potassium [Moles/Vol] 3.9 mmol/L Normal 3.5-5.1 [facility] Comment on above: Performed By: #### T 7, CMP, TSH, LIPID #### [facility] [address] [place] [address] Dr. Penny Arroyo Protein [Mass/Vol] 7.2 g/dL Normal 6.4-8.2 [facility] Comment on above: Performed By: #### T 7, CMP, TSH, LIPID #### [facility] [address] [place] [address] Dr. Penny Arroyo Sodium [Moles/Vol] 140 mmol/L Normal 136-145 [facility] Comment on above: Performed By: #### T 7, CMP, TSH, LIPID #### [facility] [address] [place] [address] Dr. Penny Arroyo Urea nitrogen [Mass/Vol] 15.0 mg/dL Normal 7.0-18.0 [facility] Comment on above: Performed By: #### T 7, CMP, TSH, LIPID #### [facility] [address] [place] [address] Dr. Penny Arroyo Urea nitrogen/Creatinine [Mass ratio] 18.1 mg/mg Normal [facility] Comment on above: Performed By: #### T 7, CMP, TSH, LIPID #### [facility] [address] [place] [address] Dr. Penny Arroyo TSHon 12-03-2022 TSH 2.567 uIU/mL Normal 0.358-3.740 [facility] Comment on above: Performed By: #### T 7, CMP, TSH, LIPID #### [facility] [address] [place] [address] Dr. Penny Arroyo Covid-19 PCR (CVDTB)on 08-20 SARS-CoV-2 (COVID-19) RNA HALI+probe Ql (Unsp spec) Not detected Normal NOT DETECTED [facility] Comment on above: Result Comment: This test is not yet approved or cleared by the [place] FDA. When there are no FDA-approved or cleared tests available, and other criteria are met, FDA can make tests available under an emergency access mechanism called an Emergency Use Authorization (EUA). The EUA for this test is supported by the [employer] of Health and Human Service's (HHS's) declaration [...] SARS-CoV-2. Performed By: #### C VDTBH #### [facility] [address] [place] [address] Dr. Penny Arroyo INFLUENZA A AND B AGon 09-08 INFLUENZA A AG Negative Normal NEGATIVE SEE COMMENT [facility] Comment on above: Performed By: #### I NFLUAB #### [facility] [address] [place] [address] Dr. Penny Arroyo INFLUENZA B AG Negative Normal NEGATIVE SEE COMMENT [facility] Comment on above: Performed By: #### I NFLUAB #### [facility] [address] [place] [address] Dr. Penny Arroyo INTERNAL CONTROLS Within Normal Limits Normal Wi thin Normal Limits [facility] Comment on above: Performed By: #### I NFLUAB #### [facility] [address] [place] [address] Dr. Penny Arroyo QUANTIFERON TB GOLD PLUSon 0 02-19-2022 QuantiFERON Criteria Comment Normal [facility] Comment on above: Result Comment: The QuantiFERON-TB Gold Plus result is determined by subtracting the Nil value from either TB antigen (Ag) tube. The mitogen tube serves as a control for the test. Performed By: #### Q NTTB #### [facility] [address] [place] [address] Dr. Penny Arroyo QuantiFERON Incubation Incubation performed. Normal [facility] Comment on above: Performed By: #### Q NTTB #### [facility] [address] [place] [address] Dr. Penny Arroyo QuantiFERON Mitogen Value >10.00 Normal [facility] Comment on above: Performed By: #### Q NTTB #### [facility] [address] [address] [address] Penny Arroyo QuantiFERON Nil Value 0.06 IU/mL Normal [facility] Comment on above: Performed By: #### Q NTTB #### [facility] [address] [address] [address] Penny Arroyo QuantiFERON TB1 Ag Value 0.05 IU/mL Normal [facility] Comment on above: Performed By: #### Q NTTB #### [facility] [address] [address] [address] Penny Arroyo QuantiFERON TB2 Ag Value 0.05 IU/mL Normal [facility] Comment on above: Performed By: #### Q NTTB #### [facility] [address] [address] [address] Penny Arroyo QuantiFERON-TB Gold Plus Negative Normal Negative [facility] Comment on above: Result Comment: Chem iluminescence immunoassay methodology Performed By: #### Q NTTB #### [facility] [address] [address] [address] Penny Arroyo Encounters Encounter Date Encounter Type Care Provider Facility Start: 09-07-2024 ambulatory Elizabeth Gross Facility:[facility] Start: 08-23-2024 End: 08-23-2024 Bamboo flowsheet Melony Mcmanus WATER MAINTENANCE SUPERVISOR-CRYSTAL FINISHER Work Phone: [facility] Start: 08-23-2024 End: 08-23-2024 Bamboo flowsheet Melony Mcmanus WATER MAINTENANCE SUPERVISOR-CRYSTAL FINISHER Work Phone: [facility] Start: 08-23-2024 End: 08-23-2024 Office outpatient visit 15 minutes Melony Mcmanus WATER MAINTENANCE SUPERVISOR-CRYSTAL FINISHER Work Phone: [facility] Comment on above: Psoriasis vulgaris ( CMS/HCC) (Primary Dx); High risk medication use Start: 07-25-2024 ambulatory Elizabeth Renato Facility:[facility] Start: 07-25-2024 End: 07-25-2024 ambulatory Elizabeth Melgarcarlos Facility:[facility] Start: 07-25-2024 End: 07-25-2024 Patient encounter procedure Eilzabeth MckeonDamaso Renato [facility] Start: 04-02-2024 End: 04-02-2024 ambulatory MELONY MCMANUS Not Available Start: 03-21-2024 End: 03-21-2024 Patient encounter procedure MD Amanda Kline Work Phone: [facility] Work Phone: Start: 03-21-2024 End: 03-21-2024 ambulatory MD Amanda Kline Work Phone: [facility] Work Phone: Start: 02-09-2024 End: 02-09-2024 ambulatory VERONICA HOLLIS Not Available Start: 12-29-2023 End: 12-29-2023 ambulatory VERONICA HOLLIS Not Available Start: 12-11-2022 Encounter for genera l adult medical examination without abnormal findings DR AMANDA KLINE . [facility] Start: 12-03-2022 End: 12-04-[address] AMANDA KLINE . Facility: Start: 12-03-2022 End: 12-04-2022 Encounter for general adult medical examination without abnormal findings DR AMANDA KLINE . Facility: Start: 09-08-2022 End: 09-08-[address] AMANDA KLINE . Facility: Start: 02-16-2022 End: 02-17-[address] OPAL BURNS Facility:[facility] Plan of Treatment Date Care Activity Detail Author Start: 03-07-2025 End: 03-07-2025 Patient encounter procedure 03/07/2025 8:55 AM EDT Office Visit [facility] [address] [place] [address] Melony Mcmanus, WATER MAINTENANCE SUPERVISOR-CRYSTAL FINISHER [address] [place] [address] [facility] Start: 05-20-2024 Influenza vaccination Influenza Vacc ine (#1) [facility] Immunizations Immunization Date Immunization Notes Care Provider Fa talon 12-19-2019 SARS-CoV-2 mRNA (dsmbhdibjnh-sath-pmrrk se) vaccine Elizabeth Gross [facility] 07-21-2005 influenza virus vaccine, unspecified formulation Melony Mcmanus WATER MAINTENANCE SUPERVISOR-CRYSTAL FINISHER Work Phone: [facility] Payers Date Payer Category Payer Self-pay [id number] 2023 Worker's Compensation [facility] [id number] 2023 Unknown [id number] 2022 [facility] [id number] 5 2019 Unknown [id number] 1989 Unknown [id number] [id number] .2.593 1989 Unknown [id number] 2.16.840.1.917353.3.579 .2.593 1989 Unknown [id number] 2.16.840.1.725170.3.579 .2.593 1989 Unknown [id number] 2.16.840.1.299523.3.579 .2.1259 1989 Unknown [id number] 2.16.840.1.502742.3.579 .2.1259 1989 Unknown [id number] 2.16.840.1.397737.3.579 .2.1259 1989 Unknown [id number] 2.16.840.1.552019.3.579 .2.1259 1989 Unknown [id number] 2.16.840.1.365383.3.579 .2.1259 1989 Unknown [id number] 2.16.840.1.566657.3.579 .2.1259 1989 Unknown [id number] 2.16.840.1.461573.3.579 .2.1259 1989 Unknown [id number] 2.16.840.1.292397.3.579 .2.1259 1989 Unknown [id number] 2.16.840.1.923966.3.579 .2.727 1959 Unknown [id number] 1959 Unknown [id number] Unknown [id number] [id number] .2.531 Social History Date Type Detail Facility [facility] Work Phone: Start: 1990 Sex Assigned At Male [facility] Tobacco smokeless tobacc o Tobacco Use:. Oral [facility] Tobacco smoking status No Smokin g Status Entered [facility] Start: 04-02-2024 End: 08-23-2024 Sex Assigned At Male [facility] Start: 02-16-2023 Tobacco smoking stat us AZIS Never smoked tobacco [facility] Start: 02-16-2023 Tobacco use and exposure Smokeless tobacco non-user [facility] Start: 04-02-2024 End: 08-23-2024 Alcoholic beverage intake Ex-drinker (finding) [facility] Start: 04-02-2024 End: 08-23-2024 History of Social function [facility] Start: 1990 Sex assigned at Not on file [facility] Functional Status Date Assessment Result Facility 07-25-2024 Functional Status N/A [facility] History of Present illness Narrative 08-23-2024 Melony Mcmanus APRN-CRYSTAL FINISHER - 08/23/2024 1:20 PM EST Note Date & Type Note Facility 08-23-2024 History of Presen t illness Narrative Images from the original note were not included. Follow up Diagnosis: Psoriasis Location: Bilateral ears, scalp Last visit: 04/02/2024 Symptoms: itchy, scaling Status: clear today Tried and failed treatment: Cosentyx 300 mg subcutaneous every 28 days. Current treatment: Tremfya 100 mg Q 8 weeks subcutaneous. Patient denies any side effects. Patient is receiving medication at low cost. Last TB: 04/02/2024 Current weight: 250.0 lb All pertinent medical history, medications, and allergies were reviewed. General Exam: alert, oriented to person, place, and time, normal affect, well appearing Unaccompanied A focused exam completed based on patient reported problems, see below: 1. Psoriasis vulgaris (CMS/HCC) Left Posterior Auricle, Right Posterior Auricle Clear of erythematous macules where active psoriasis was. BSA:0%. Continue Tremfya as prescribed. Improvement with scaling and itching since starting tremfya. Reminded not to inject when sick, no live vaccines, and recommended for patient to get flu vaccine due to patient immune system depressed. Patient signed [employer] application form and provided to biologic coordinator. Instructed patient to always use prescription copay cover card when filling medication and never pay high amount for medication. Follow up in February 2025. Notify office if any worsening despite treatment. Related Medications Tremfya 100 MG/ML injection Inject 100 mg (contents of one pen) under the skin at week 0 and week 4. Tremfya 100 MG/ML injection Inject 1 mL (100 mg) under the skin every 8 (eight) weeks 2. High risk medication use Next Visit: 02/2025 documented in this encounter [facility] Discharge instructions 07-25-2024 Note Date & Type Note Facility 07-25-2024 Hospital Discharg e instructions Patient Education 07/25/2024 09:32:15 Prostatitis Prostatitis Prostatitis is swelling or inflammation of the prostate gland, also called the prostate. This gland is about 1.5 inches wide and 1 inch high, and it is involved in making semen. The prostate is located below a man's bladder, in front of the rectum. There are four types of prostatitis: Chronic prostatitis (CP), also called chronic pelvic pain syndrome (CPPS). This is the most common type of prostatitis. It is associated with increased muscle tone in the area between the hip bones (pelvic area), around the prostate. This type is also known as a pelvic floor disorder. Chronic bacterial prostatitis. This type usually results from an acute bacterial infection in the prostate gland that keeps coming back or has not been treated properly. The symptoms are less severe than those caused by acute bacterial prostatitis, which lasts a shorter time. Asymptomatic inflammatory prostatitis. This type does not have symptoms and does not need treatment. This is diagnosed when tests are done for other disorders of the urinary tract or reproductive tract. Acute bacterial prostatitis. This type starts quickly and results from an acute bacterial infection in the prostate gland. It is usually associated with a bladder infection, high fever, and chills. This is the least common type of prostatitis. What are the causes? Bacterial prostatitis is caused by an infection from bacteria. Chronic nonbacterial prostatitis may be caused by: Factors related to the nervous system. This system includes thebrain, spinal cord, and nerves. An autoimmune response. This happens when the body's disease-fighting system attacks healthy tissue in the body by mistake. Psychological factors. These have to do with how the mind works. The causes of the other types of prostatitis are usually not known. What are the signs or symptoms? Symptoms of this condition depend on the type of prostatitis you have. Acute bacterial prostatitis Symptoms may include: Pain or burning during urination. Frequent and sudden urges to urinate. Trouble starting to urinate. Fever. Chills. Pain in your muscles or joints, lower back, or lower abdomen. Other types of prostatitis Symptoms may include: Sudden urges to urinate, or urinating often. Trouble starting to urinate. Weak urine stream. Dribbling after urination. Discharge coming from the penis. Pain in the testicles, the penis, or the tip of the penis. Pain in the area in front of the rectum and below the scrotum (perineum). Pain when ejaculating. How is this diagnosed? This condition may be diagnosed based on: A physical and medical exam. A digital rectal exam. For this, the health care provider may use a finger to feel the prostate. A urine test to check for bacteria. A semen sample or blood tests. Ultrasound. Urodynamic tests to check how your body handles urine. Cystoscopy to look inside your bladder or inside the part of your body that drains urine from the bladder (urethra). How is this treated? Treatment for this condition depends on the type of prostatitis. Treatment may involve: Medicines to relieve pain or inflammation, or to help relax your muscles. Physical therapy. Heat therapy. Biofeedback. These techniques help you control certain body functions. Relaxation exercises. Antibiotic medicine, if your condition is caused by bacteria. Sitz baths. These warm water baths help to relax your pelvic floor muscles, which helps to relieve pressure on the prostate. Follow these instructions at home: Medicines Take qgzj-amr-plhoniq and prescription medicines only as told by your health care provider. If you were prescribed an antibiotic medicine, take it as told by your health care provider. Do not stop using the antibiotic even if you start to feel better. Managing pain and swelling Take sitz baths as directed by your health care provider. For a sitz bath, sit in warm water that is deep enough to cover your hips and buttocks. If directed, apply heat to the affected area as often as told by your health care provider. Use the heat source that your health care provider recommends, such as a moist heat pack or a heating pad. ?Place a towel between your skin and the heat source. ?Leave the heat on for 20 30 minutes. ?Remove the heat if your skin turns bright red. This is especially important if you are unable to feel pain, heat, or cold. You may have a greater risk of getting burned. General instructions Do exercises as told by your health care provider, if you were prescribed physical therapy, biofeedback, or relaxation exercises. Keep all follow-up visits as told by your health care provider. This is important. Where to find more information [employer] [place] [employer] and [employer]estive [employer] Kidney Diseases: https://www.niddk.nih.gov Contact a health care provider if: Your symptoms get worse. You have a fever. Get help right away if: You have chills. You feel light-headed or feel like you may faint. You cannot urinate. You have blood or blood clots in your urine. Summary Prostatitis is swelling or inflammation of the prostate gland. Treatment for this condition depends on the type of prostatitis. Take evkp-kli-lsrrfra and prescription medicines only as told by your health care provider. Get help right away of you have chills, feel light-headed, feel like you may faint, cannot urinate, or have blood or blood clots in your urine. This information is not intended to replace advice given to you by your health care provider. Make sure you discuss any questions you have with your health care provider. Document Revised: 07/21/2023 Document Reviewed: 07/21/2023 2can Patient Education 2023 [employer]. 07/25/2024 08:57:39 Male Infertility Male Infertility Male infertility refers to a male's inability to get a female (get her to conceive) after a year of having sex regularly without using control. Both males and females can have fertility problems. What are the causes? This condition may be caused by: Problems with sperm. Infertility can result if a male is: ?Not producing enough sperm (low sperm count). ?Not producing enough sperm of normal size and shape (poor sperm morphology). ?Producing sperm that are not able to reach the egg (poor motility). Problems in a man's reproductive organs, such as: ?Enlarged veins (varicoceles), cysts (spermatoceles), or tumors of the testicles. ?Sexual dysfunction, including not being able to have an erection. ?Injury to the testicles. ?Having had a testicle that did not drop to its location in the scrotum (undescended testicle). ?A defect, such as not having the tubes that carry sperm (vas deferens). ?A lack of certain hormones. Certain medical conditions. These may include: ?Diabetes. ?Cancer and cancer treatments, such as chemotherapy or radiation. ?Klinefelter syndrome. This is an inherited genetic disorder. ?Thyroid problems, such as an underactive or overactive thyroid. ?Cystic fibrosis. ?Infections. ?Sexually transmitted diseases. Infertility can be linked to more than one cause. The cause of infertility in some men is not known. This is called unexplained infertility. What increases the risk? Age. A male's fertility declines with age. Using products that contain nicotine or tobacco. Excessive alcohol use. Obesity. Emotional stress. Exposure of the testicles to heat, such as frequent use of a hot tub or sauna. Using drugs such as anabolic steroids, cocaine, and marijuana. Being exposed to environmental toxins, such as pesticides and lead. What are the signs or symptoms? The main sign of infertility in males is the inability to get a female to conceive. How is this diagnosed? This condition may be diagnosed using: Semen analysis tests to check sperm count, morphology, and motility. Blood tests to check hormone levels. Ultrasound of the scrotum to check for a varicocele or problems with the testicles. Transrectal ultrasound to check the prostate gland and to look for problems with the tubes that transport the semen (seminal vesicles). Taking a small sample of tissue from inside a testicle to look at it under a microscope (biopsy). Blood tests to check for genetic abnormalities (genetic testing). To be diagnosed with infertility, both partners will have a physical exam and tell their health care providers about their medical and sexual histories. Additional tests may be done. How is this treated? Treatment depends on the cause of infertility. Most cases of infertility in males are treated with medicine, surgery, or lifestyle changes. Treatment may include: Taking medicines. Medicines may: ?Correct hormone problems. ?Treat other health conditions. ?Treat infections. ?Treat sexual dysfunction. Having surgery. You may have surgery to: ?Remove blockages in the reproductive tract. ?Correct other structural problems of the reproductive tract. Making lifestyle changes. These changes may include: ?Reducing alcohol use or not drinking alcohol. ?Stopping use of drugs such as anabolic steroids, cocaine, and marijuana. ?Losing weight. ?Stopping smoking. ?Using stress reduction techniques. If other treatments do not work, your health care provider may recommend assisted reproductive technology (ART). ART refers to all treatments and procedures that combine eggs and sperm outside the body to try to help a couple conceive. ART may be effective for infertility caused by sperm problems including low sperm count and low motility. Examples of ART include intrauterine insemination and in vitro fertilization. Follow these instructions at home: Lifestyle If you drink alcohol, limit how much you have to 0 2 drinks a day. Do not use any products that contain nicotine or tobacco. These products include cigarettes, chewing tobacco, and vaping devices, such as e-cigarettes. If you need help quitting, ask your health care provider. Make changes to your diet if needed to lose weight or maintain a healthy weight. Work with your health care provider and a dietitian to set a weight-loss goal that is healthy and reasonable for you. Practice stress reduction techniques that work well for you, such as regular physical activity, meditation, or deep breathing. General instructions Take eaxu-dmr-hdlrqlj and prescription medicines only as told by your health care provider. Seek support from a counselor or support group to talk about your concerns related to infertility. Couples counseling may be helpful for you and your partner. Keep all follow-up visits. This is important. Contact a health care provider if you: Feel that stress is interfering with your life and relationships. Have side effects from treatments for infertility. Summary Male infertility refers to a male's inability to get a female (get her to conceive) after a year of having sex regularly without using control. To be diagnosed with infertility, both partners will have a physical exam and tell their health care providers about their medical and sexual histories. Seek support from a counselor or support group to talk about your concerns related to infertility. Couples counseling may be helpful for you and your partner. This information is not intended to replace advice given to you by your health care provider. Make sure you discuss any questions you have with your health care provider. Document Revised: 05/05/2022 Document Reviewed: 05/05/2022 2can Patient Education 2023 [employer]. Follow Up Care 06/01/2024 14:48:59 With:Renato AMBROSE, CARL Marin, URO Address: When: Unknown [facility] Clinical Note 07-25-2024 Note Date & Type Note Facility 07-25-2024 Note Patient Education Infectious Disease Prostatitis Prostatitis is swelling or inflammation of the prostate gland, also called the prostate. This gland is about 1.5 inches wide and 1 inch high, and it is involved in making semen. The prostate is located below a man's bladder, in front of the rectum. There are four types of prostatitis: ??? Chronic prostatitis (CP), also called chronic pelvic pain syndrome (CPPS). This is the most common type of prostatitis. It is associated with increased muscle tone in the area between the hip bones (pelvic area), around the prostate. This type is also known as a pelvic floor disorder. ??? Chronic bacterial prostatitis. This type usually results from an acute bacterial infection in the prostate gland that keeps coming back or has not been treated properly. The symptoms are less severe than those caused by acute bacterial prostatitis, which lasts a shorter time. ??? Asymptomatic inflammatory prostatitis. This type does not have symptoms and does not need treatment. This is diagnosed when tests are done for other disorders of the urinary tract or reproductive tract. ??? Acute bacterial prostatitis. This type starts quickly and results from an acute bacterial infection in the prostate gland. It is usually associated with a bladder infection, high fever, and chills. This is the least common type of prostatitis. What are the causes? Bacterial prostatitis is caused by an infection from bacteria. Chronic nonbacterial prostatitis may be caused by: ??? Factors related to the nervous system. This system includes thebrain, spinal cord, and nerves. ??? An autoimmune response. This happens when the body's disease-fighting system attacks healthy tissue in the body by mistake. ??? Psychological factors. These have to do with how the mind works. The causes of the other types of prostatitis are usually not known. What are the signs or symptoms? Symptoms of this condition depend on the type of prostatitis you have. Acute bacterial prostatitis Symptoms may include: ??? Pain or burning during urination. ??? Frequent and sudden urges to urinate. ??? Trouble starting to urinate. ??? Fever. ??? Chills. ??? Pain in your muscles or joints, lower back, or lower abdomen. Other types of prostatitis Symptoms may include: ??? Sudden urges to urinate, or urinating often. ??? Trouble starting to urinate. ??? Weak urine stream. ??? Dribbling after urination. ??? Discharge coming from the penis. ??? Pain in the testicles, the penis, or the tip of the penis. ??? Pain in the area in front of the rectum and below the scrotum (perineum). ??? Pain when ejaculating. How is this diagnosed? This condition may be diagnosed based on: ??? A physical and medical exam. ??? A digital rectal exam. For this, the health care provider may use a finger to feel the prostate. ??? A urine test to check for bacteria. ??? A semen sample or blood tests. ??? Ultrasound. ??? Urodynamic tests to check how your body handles urine. ??? Cystoscopy to look inside your bladder or inside the part of your body that drains urine from the bladder (urethra). How is this treated? Treatment for this condition depends on the type of prostatitis. Treatment may involve: ??? Medicines to relieve pain or inflammation, or to help relax your muscles. ??? Physical therapy. ??? Heat therapy. ??? Biofeedback. These techniques help you control certain body functions. ??? Relaxation exercises. ??? Antibiotic medicine, if your condition is caused by bacteria. ??? Sitz baths. These warm water baths help to relax your pelvic floor muscles, which helps to relieve pressure on the prostate. Follow these instructions at home: Medicines ??? Take aose-pif-maadage and prescription medicines only as told by your health care provider. ??? If you were prescribed an antibiotic medicine, take it as told by your health care provider. Do not stop using the antibiotic even if you start to feel better. Managing pain and swelling ??? Take sitz baths as directed by your health care provider. For a sitz bath, sit in warm water that is deep enough to cover your hips and buttocks. ??? If directed, apply heat to the affected area as often as told by your health care provider. Use the heat source that your health care provider recommends, such as a moist heat pack or a heating pad. ? Place a towel between your skin and the heat source. ? Leave the heat on for 20?30 minutes. ? Remove the heat if your skin turns bright red. This is especially important if you are unable to feel pain, heat, or cold. You may have a greater risk of getting burned. General instructions ??? Do exercises as told by your health care provider, if you were prescribed physical therapy, biofeedback, or relaxation exercises. ??? Keep all follow-up visits as told by your health care provider. This is important. (more content not included)... [facility] Clinical Note 03-21-2024 Note Date & Type Note Facility 03-21-2024 [facility] Sperm Rapid Progressive March 21, 2024 7:30am 57 % Clinical Note 03-21-2024 Note Date & Type Note Facility 03-21-2024 [facility] Sperm Non-Progressive March 21, 2024 7:30am 7 % Evaluation + Plan note Note Date & Type Note Facility Evaluation + Plan note Future Appointments Appointment Date:09/07/2024 08:45:00 AM Scheduled Provider:Renato AMBROSE, Elizabeth Alvarado Location:[facility] Appointment Type:URO Office Visit Diagnostic Tests PendingTestosterone Level Total 07/25/24FSH Level 07/25/24 [facility] Evaluation note Note Date & Type Note Facility Evaluation note No assessment information availa [facility] Work Phone: Evaluation note Note Date & Type Note Facility Evaluation note Diagnosis Psoriasis vulgaris (CMS/HCC)- Primary Other psoriasis High risk medication use documented in this encounter [facility] Hospital course Narrative Note Date & Type Note Facility Hospital course Narrative No data available for this section [facility] Progress note Note Date & Type Note Facility Progress note No data available for this section [facility] Summary Purpose Family History No Family History Records FoundNo Family History Records FoundNo Family History Records FoundNo Family History Records Found No data available for this section Advance Directives Advance Directive Response Recorded Date/ Time Advance Directives No March 21 8:26am Chief Complaint and Reason for Visit Chief Complaint Z31.42 Additional Source Comments (unrecognized sect ion and content) No Status Records FoundNo Status Records FoundNo Status Records FoundNo Status Records Found INFORMATION SOURCE (unrecogn ized section and content) DATE CREATED AUTHOR 12/12/[address] [facility] pital DATE CREATED AUTHOR AUTHOR'S ORGANIZ ATION 04/06/2024 [facility] DATE CREATED AUTHOR AUTHOR'S ORGANIZ ATION 04/06/2024 [facility] EPIC DATE CREATED AUTHOR AUTHOR'S ORGANIZ ATION 07/26/2024 [facility] Care Teams (unrecognized sec tion and content) Team Status: Active Member Role Status Dates Amanda Kline MD Primary Care Provider Active Team Status: Inactive Member Role Status Dates Amanda Kline MD Primary Care Provider Active Start: March 21, 2024 End: March 21, 2024 Tani Rivero MD Attending Provider Active St art: March 21, 2024 End: March 21, 2024 Attorney General Relationship Specialty Start Date End Date Amanda Kline MD [address] [place] [id number] PCP - General Family Medicine 12/29/23 Attorney General Relationship Specialty Start Date End Date Amanda Kline MD [address] [place] [address] PCP - General Family Medicine 12/29/23 Goals (unrecognized section and content) Goals may be documented in a n alternate section No data available for this section Reason for Visit (unrecogniz ed section and content) Reason Comments Follow-up FOR RECORDS PERTAINING TO PATIENTS WHO ARE [...] BE BASED ON THE PRIMARY CLINICAL RECORDS. [facility] [employer] [facility] provides no warranty or guarantee of the accuracy or completeness of information in this document.
== END 2024-08-31 10:59 | disposition home or self-care (01) ==
LOC: US 10:58
PROVIDERS: PCP Family Medicine; Visit Provider Urology
DX: N50.3 Cyst of epididymis (principal); I86.1 Scrotal varices
CPT/HCPCS: 76870